=== PATIENT | male | born 1945 | race Caucasian/White ===

== ENCOUNTER 2017-06-01 11:22 | Observation (INO) | payer MEDICARE, OTHER ==
[~2017-06-01] VITALS: Ht 177.8 cm; Wt 75.0 kg
[~2017-06-01 11:22] MED LIST: ASPI81 PO; ATOR40TA PO; BENA25MI PO; CARV6.252 PO; CLOP75 PO; NU-I150C PO; OXYC1SOL5 PO; SACU1TAB7 PO; SUPETAB30 PO; WALKER ROLLING
[2017-06-01 11:29] VITALS: BP 115/74; PULSE 62; RESP 20; TEMP 97.6; O2SAT 96
--- NOTE | 2017-06-01 11:49 | PD ---
Physical Exam Time Seen by Provider: 11:47 Narrative 71yo c/o left sided chest pain, SOB, dizziness and weakness x2 weeks. Patient seen in triage. VS reviewed. Awaiting bed placement. Data Data Last Documented VS Vital Signs Date Time Temp Pulse Resp B/P Pulse Ox O2 Delivery O2 Flow Rate FiO2 06/01/17 11:29 97.6 62 20 115/74 96 Room Air [facility] Supervised Visit with STEPHEN: Mikala Clark Jun 01, 2017 11:49
[2017-06-01 12:07] VITALS: BP 106/67; PULSE 58; RESP 18; TEMP 98.5; O2SAT 98
[2017-06-01] MEDS ORDERED: CARV20 PO (12:13)
[2017-06-01] MEDS ORDERED: ATOR40TA16 PO (12:13)
[2017-06-01] MEDS ORDERED: SACU1TAB4 PO (12:13)
[2017-06-01] MEDS ORDERED: ASPI81CH37 CHEW (12:13)
--- NOTE | 2017-06-01 12:27 | PD ---
HPI Chief Complaint: Chest Pain Time Seen by Provider: 12:09 Travel History International Travel<30 days: No Contact w/Intl Traveler<30days: No Traveled to known affect area: No History of Present Illness HPI 71-year-old male complains of chest pain, dizziness, generalized malaise and weakness. Patient states that the symptoms has been intermittent for the past 2 weeks. Patient states the chest pain usually lasted a few minutes and resolved completely. Patient states that the chest pain so she with exertion. Patient denies any coughing congestion fever chills. Patient denies any nausea vomiting diaphoresis. Patient has history of CAD, status post CO, status post CABG 3. Patient also has history hypertension, hyperlipidemia. Patient denies history diabetes. Patient chews tobacco. Patient has family history of heart disease. Patient denies any chest pain now. PFSH Past Medical History Hx Anticoagulant Therapy: Yes Cardiac Catheterization: Yes Cardiovascular Problems: Yes High Cholesterol: Yes Diminished Hearing: No Hypertension: Yes Myocardial Infarction: Yes (1999) Past Surgical History Appendectomy: Yes Coronary Artery Bypass Graft: Yes (2 weeks ago) Social History Alcohol Use: No Tobacco Use: No (CHEW daily) Substance Use: No Allergies-Medications (Allergen,Severity, Reaction): Coded Allergies: No Known Allergies (Verified , 04/13/16) Reported Meds & Prescriptions Reported Meds & Active Scripts Active Reported Atorvastatin (Atorvastatin Calcium) 40 Mg Tab 40 Mg PO HS Aspirin Low Dose (Aspirin) 81 Mg Chew 81 Mg CHEW DAILY Entresto (Sacubitril-Valsartan) 97-103 Mg Tab 1 Tab PO BID Coreg Cr 24 HR (Carvedilol) 20 Mg Cap 25 Mg PO BID Review of Systems General / Constitutional: No: Fever Eyes: No: Visual changes HENT: Positive: Lightheadedness, No: Headaches Cardiovascular: Positive: Chest Pain or Discomfort Respiratory: No: Shortness of Breath Gastrointestinal: No: Abdominal Pain Genitourinary: No: Dysuria Musculoskeletal: No: Pain Skin: No Rash Neurologic: No: Weakness Psychiatric: No: Depression Endocrine: No: Polydipsia Hematologic/Lymphatic: No: Easy Bruising Physical Exam Narrative GENERAL: Well-nourished, well-developed patient. SKIN: Focused skin assessment warm/dry. HEAD: Normocephalic. EYES: No scleral icterus. No injection or drainage. NECK: Supple, trachea midline. No JVD or lymphadenopathy. CARDIOVASCULAR: Regular rate and rhythm without murmurs, gallops, or rubs. RESPIRATORY: Breath sounds equal bilaterally. No accessory muscle use. GASTROINTESTINAL: Abdomen soft, non-tender, nondistended. MUSCULOSKELETAL: No cyanosis, or edema. BACK: Nontender without obvious deformity. No CVA tenderness. Neurologic exam normal. Data Data Last Documented VS Vital Signs Date Time Temp Pulse Resp B/P Pulse Ox O2 Delivery O2 Flow Rate FiO2 06/01/17 12:56 18 99 Room Air 06/01/17 12:07 98.5 58 106/67 Orders Electrocardiogram (06/01/17 12:22) Complete Blood Count With Diff (06/01/17 12:22) Comprehensive Metabolic Panel (06/01/17 12:) Creatine Kinase (Cpk) (06/01/17 12:22) Troponin I (06/01/17 12:22) B-Type Natriuretic Peptide (06/01/17 12:22) Prothrombin Time / Inr (Pt) (06/01/17 12:22) Act Partial Throm Time (Ptt) (06/01/17 12:22) Chest, Single Ap (06/01/17 12:22) Iv Access Insert/Monitor (06/01/17 12:22) Ecg Monitoring (06/01/17 12:22) Oximetry (06/01/17 12:22) Labs Laboratory Tests Test 06/01/17 12:25 White Blood Count 5.0 TH/MM3 Red Blood Count 5.51 MIL/MM3 Hemoglobin 14.3 GM/DL Hematocrit 45.0 % Mean Corpuscular Volume 81.7 FL Mean Corpuscular Hemoglobin 26.0 PG Mean Corpuscular Hemoglobin 31.9 % Concent Red Cell Distribution Width 14.2 % Platelet Count 191 TH/MM3 Mean Platelet Volume 8.1 FL Neutrophils (%) (Auto) 49.7 % Lymphocytes (%) (Auto) 30.3 % Monocytes (%) (Auto) 16.4 % Eosinophils (%) (Auto) 2.8 % Basophils (%) (Auto) 0.8 % Neutrophils # (Auto) 2.5 TH/MM3 Lymphocytes # (Auto) 1.5 TH/MM3 Monocytes # (Auto) 0.8 TH/MM3 Eosinophils # (Auto) 0.1 TH/MM3 Basophils # (Auto) 0.0 TH/MM3 CBC Comment DIFF FINAL Differential Comment Prothrombin Time 11.3 SEC Prothromb Time International 1.0 RATIO Ratio Activated Partial 27.9 SEC Thromboplast Time Sodium Level 139 MEQ/L Potassium Level 3.9 MEQ/L Chloride Level 104 MEQ/L Carbon Dioxide Level 31.8 MEQ/L Anion Gap 3 MEQ/L Blood Urea Nitrogen 15 MG/DL Creatinine 0.97 MG/DL Estimat Glomerular Filtration 76 ML/MIN Rate Random Glucose 82 MG/DL Calcium Level 8.4 MG/DL Total Bilirubin 0.6 MG/DL Aspartate Amino Transf 17 U/L (AST/SGOT) Alanine Aminotransferase 20 U/L (ALT/SGPT) Alkaline Phosphatase 85 U/L Total Creatine Kinase 90 U/L Troponin I LESS THAN 0.02 NG/ML B-Type Natriuretic Peptide 120 PG/ML Total Protein 6.2 GM/DL Albumin 3.2 GM/DL [facility] Medical Decision Making Medical Screen Exam Complete: Yes Emergency Medical Condition: Yes Interpretation(s) 12:27 PM. EKG shows sinus rhythm nonspecific ST-T wave change. Last Impressions Chest X-Ray 06/01/17 1222 Signed Impressions: Service Date/Time: Thursday, June 01, 2017 12:22 - CONCLUSION: Minimal platelike atelectasis in the left costophrenic angle. Otherwise, no acute intrathoracic disease. Dre Jack MD 1335 PM. CBC within normal limit. CMP within normal limit. Cardiac enzymes are normal. Differential Diagnosis Differential diagnosis including angina, CO, PE, pneumothorax, electrolyte abnormality. Narrative Course 71-year-old male with intermittent chest pain dizziness and generalized malaise and weakness. History of CAD. Diagnosis Primary Impression: Chest pain Qualified Code: R07.9 - Chest pain, unspecified type Admitting Information Admitting Physician Requests: Observation Job Corona MD Jun 01, 2017 12:27
[2017-06-01 12:46] LABS: AUTOMATED NEUTROPHIL # 2.5 TH/MM3 (1.8-7.7); BASOPHIL % 0.8 % (0.0-2.0); EOSINOPHIL # 0.1 TH/MM3 (0-0.4); EOSINOPHIL % 2.8 % (0.0-4.0); HEMO FLAGS DIFF FINAL; LYMPH % 30.3 % (9.0-44.0); LYMPHOCYTE # 1.5 TH/MM3 (1.0-4.8); MEAN CELL VOLUME 81.7 FL (80.0-100.0); MEAN CORPUSCULAR HGB CONC 31.9 % (32.0-36.0); MONO % 16.4 % (0.0-8.0); NEUT % 49.7 % (16.0-70.0); PLATELET COUNT 191 TH/MM3 (150-450); RED BLOOD COUNT 5.51 MIL/MM3 (4.50-5.90); RED CELL DISTRIBUTION WIDTH 14.2 % (11.6-17.2)
[2017-06-01 12:51] LABS: APTT (PATIENT) 27.9 SEC (24.3-30.1); PROTHROMBIN TIME - PATIENT 11.3 SEC (9.8-11.6)
[2017-06-01 12:56] VITALS: RESP 18; O2SAT 99
--- NOTE | 2017-06-01 12:58 | RADRPT ---
EXAM DATE/TIME: 06/01/2017 12:22 [facility] COMPARISON: CHEST SINGLE AP, February 15, 2016, 3:19. INDICATIONS : Left side chest pressure and chest pains, dizziness, weakness. MEDICAL HISTORY : Myocardial infarction. SURGICAL HISTORY : CABG. ENCOUNTER: Initial ACUITY: 3 days PAIN SCORE: 8/10 LOCATION: Left chest FINDINGS: A single view of the chest demonstrates the lungs to be symmetrically aerated without evidence of mas s, infiltrate or effusion. Minimal platelike atelectasis in the left costophrenic angle. The lungs ar e hyperaerated bilaterally. The cardiomediastinal contours are unremarkable. There is evidence of pr evious cardiothoracic surgery. Osseous structures are intact and stable. CONCLUSION: Minimal platelike atelectasis in the left costophrenic angle. Otherwise, no acute intrathoracic disea se. Dre Jack MD on June 01, 2017 at 12:55 Board Certified Radiologist. This report was verified electronically.
[2017-06-01 13:05] LABS: ALT (GPT) 20 U/L (12-78); ANION GAP 3 MEQ/L (5-15); AST (GOT) 17 U/L (15-37); BICARBONATE 31.8 MEQ/L (21.0-32.0); BLOOD UREA NITROGEN 15 MG/DL (7-18); CHLORIDE 104 MEQ/L (98-107); GLOMERULAR FILTRATION RATE 76 ML/MIN (>89); POTASSIUM 3.9 MEQ/L (3.5-5.1); SODIUM (NA) 139 MEQ/L (136-145)
[2017-06-01 13:08] LABS: ALKALINE PHOSPHATASE 85 U/L (45-117); TOTAL BILIRUBIN ADULT 0.6 MG/DL (0.2-1.0)
[2017-06-01 13:12] LABS: CREATINE KINASE 90 U/L (39-308)
[2017-06-01] MEDS ORDERED: ACETAMINOPHEN 500 MG CPLT PO PRN (13:45)
[2017-06-01] MEDS ORDERED: SODIUM CHLORIDE 0.9% FLUSH 10 ML FLUSH IV FLUSH PRN (13:45)
[2017-06-01] MEDS ORDERED: ONDANSETRON HCL 4 MG/2 ML VIAL IV PRN (13:45)
--- NOTE | 2017-06-01 15:38 | HHI.HP ---
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 He became hot, dry and exhausted. He felt very weak and light headed but did not stop sweating. This necessitated a rest and cooling off period with rehydration. He had no chest pain. Since that time he has had 3 or 4 recurrent episodes of light headedness and weakness precipitated by over exertion. He also has had several mild episodes of CP but this is nothing like the discomfort he had prior to having CABG. This pain is dull, in the left lateral chest, with no radiation lasting only about 30 seconds. He had an CO in 1999 and underwent CABG by Dr. Cooper in 2015. Since that time he has had no problems at all. Risk include HTN, Lipids He is followed by Dr. Craig (Santana Vargas MD) Review of Systems Consitutional: COMPLAINS OF: Fatigue HEENT: COMPLAINS OF: Lightheadedness Cardiovascular: COMPLAINS OF: See HPI, Chest pain (Santana Vargas MD) Past Family Social History Allergies: Coded Allergies: No Known Allergies (Verified , 04/13/16) Past Medical History HTN LIPIDS Past Surgical History CABG X3 IN 2014 BY FORREST Reported Medications Reported Meds & Active Scripts Active Reported Atorvastatin (Atorvastatin Calcium) 40 Mg Tab 40 Mg PO HS Aspirin Low Dose (Aspirin) 81 Mg Chew 81 Mg CHEW DAILY Entresto (Sacubitril-Valsartan) 97-103 Mg Tab 1 Tab PO BID Coreg Cr 24 HR (Carvedilol) 20 Mg Cap 25 Mg PO BID Active Ordered Medications Current Medications Medications (Trade) Dose Ordered Sig/Cee Route Start Time Stop Time Status Last Admin (NS Flush) 2 ml UNSCH PRN IV FLUSH 06/01/17 13:45 (NS Flush) 2 ml BID IV FLUSH 06/01/17 21:00 (Tylenol) 500 mg Q4H PRN PO 06/01/17 13:45 (Zofran Inj) 4 mg Q6H PRN IV 06/01/17 13:45 Family History FATHER MURDERED MOTHER IN HER 60ies of COPD Social History STILL CHEWS TOBACCO NO ETOH OR DRUGS (Santana Vargas MD) Physical Exam Vital Signs Vital Signs Date Time Temp Pulse Resp B/P Pulse Ox O2 Delivery O2 Flow Rate FiO2 06/01/17 12:56 18 99 Room Air 06/01/17 12:07 98.5 58 18 106/67 98 Room Air 06/01/17 12:07 58 18 96 Room Air 06/01/17 11:29 97.6 62 20 115/74 96 Room Air Physical Exam GEN WNWD SKN SOLAR DAMAGE HEENT BALDING, NCAT, NO BRUITS, POOR DENTITION WITH NO LESIONS NECK SUPPLE NO JVD OR BRUITS CHEST CLEAR TO AP WITH NO RWR ABD SOFT NT, NGR EXT WITHOUT CCE NEURO GOOD STRENGTH, CRANIAL INTACT, NO TREMOR Laboratory Laboratory Tests Test 06/01/17 12:25 White Blood Count 5.0 Red Blood Count 5.51 Hemoglobin 14.3 Hematocrit 45.0 Mean Corpuscular Volume 81.7 Mean Corpuscular Hemoglobin 26.0 Mean Corpuscular Hemoglobin 31.9 Concent Red Cell Distribution Width 14.2 Platelet Count 191 Mean Platelet Volume 8.1 Neutrophils (%) (Auto) 49.7 Lymphocytes (%) (Auto) 30.3 Monocytes (%) (Auto) 16.4 Eosinophils (%) (Auto) 2.8 Basophils (%) (Auto) 0.8 Neutrophils # (Auto) 2.5 Lymphocytes # (Auto) 1.5 Monocytes # (Auto) 0.8 Eosinophils # (Auto) 0.1 Basophils # (Auto) 0.0 CBC Comment DIFF FINAL Differential Comment Prothrombin Time 11.3 Prothromb Time International 1.0 Ratio Activated Partial 27.9 Thromboplast Time Sodium Level 139 Potassium Level 3.9 Chloride Level 104 Carbon Dioxide Level 31.8 Anion Gap 3 Blood Urea Nitrogen 15 Creatinine 0.97 Estimat Glomerular Filtration 76 Rate Random Glucose 82 Calcium Level 8.4 Total Bilirubin 0.6 Aspartate Amino Transf 17 (AST/SGOT) Alanine Aminotransferase 20 (ALT/SGPT) Alkaline Phosphatase 85 Total Creatine Kinase 90 Troponin I LESS THAN 0.02 B-Type Natriuretic Peptide 120 Total Protein 6.2 Albumin 3.2 (Santana Vargas MD) Result Diagram: 06/01/17 1225 06/01/17 1225 Assessment and Plan Assessment and Plan A: WEAK AND LIGHT HEADED PROBABLY SECONDARY TO HEAT EXHAUSTION 2 WEEKS AGO BUT WILL RO POSSIBLE CARDIAC ETIOLOGY CP KNOWN CAD SP CABG CP ATYPICAL AND NOT LIKE PRIOR ANGINA P: RO PER PROTOCOL ETT WHEN RO DISCH TO FU WITH DR CRAIG IF NEG (Santana Vargas MD) Assessment and Plan Luis protocol stress test completed. Walks 10; 01 minutes no reproducible chest pain. No signs of ischemia. Will discharged this evening with follow-up with his PCP. (Brittany Hernandez) Santana Vargas MD Jun 01, 2017 15:38 Brittany Hernandez Jun 01, 2017 17:11
[2017-06-01 17:14] VITALS: BP 106/74; PULSE 67; RESP 18; TEMP 97.5; O2SAT 95
--- NOTE | 2017-06-01 17:20 | HHI.DCPOC ---
Discharge Care Plan Diagnosis: (1) Atypical chest pain (2) Hx of coronary artery disease Goals to Promote Your Health * To prevent worsening of your condition and complications * To maintain your health at the optimal level Directions to Meet Your Goals Take your medications as prescribed Follow your dietary instruction Follow activity as directed Keep your appointments as scheduled Take your immunizations and boosters as scheduled If your symptoms worsen call your PCP, if no PCP go to Urgent Care Center or Emergency Room Smoking is Dangerous to Your Health. Avoid second hand smoke Call the 24-hour hour crisis hotline for domestic abuse at Brittany Hernandez Jun 01, 2017 17:20
[2017-06-01] MEDS ORDERED: SODIUM CHLORIDE 0.9% FLUSH 10 ML FLUSH IV FLUSH SCH (21:00)
--- NOTE | 2017-06-02 09:40 | TR ---
Date Performed: 06/01/2017 Time Performed: 16:34:51 DOCTOR: Santana Vargas DRUG LIST: CLINICAL HISTORY: REASON FOR TEST: Chest pain REASON FOR ENDING: OBSERVATION: CONCLUSION: Luis protocol completed. Stopped sec to leg fatigue. Target HR Achieved=84.0% Maxim um EZ=946/94 Total Exercise Time=10:01 Maximum GB=294. No reprod chest pain. ST elevation in V3 and V 4 prior to exam, unchanged during exam. No st depression to sugg ischemia. Rare PVC during recovery. Normal bp response. Good exercise tolerance. Recovery quick and unremarkable. COMMENTS: /ETTPatient exercised using the Luis protocol. No electrocardiographic changes were s een to suggest ischemia. Hemodynamic response to exercise was normal. No significant arrhythmia was p resent.
--- NOTE | 2017-06-02 16:38 | EKG ---
Date Performed: 06/01/2017 Time Performed: 15:56:52 PTAGE: 71 years EKG: SINUS BRADYCARDIA WITH FIRST DEGREE AV BLOCK LATERAL MYOCARDIAL INFARCTION INFERIOR MYOCARD IAL INFARCTION ABNORMAL ECG PREVIOUS TRACING : 06/01/2017 11.59 Compared to the previous tracing, change in anterior QRS pa ttern may be due to lead placement DOCTOR: Petar Retana Interpretating Date/Time 06/02/2017 16:37:36
--- NOTE | 2017-06-02 16:58 | EKG ---
Date Performed: 06/01/2017 Time Performed: 11:59:38 PTAGE: 71 years EKG: SINUS BRADYCARDIA WITH FIRST DEGREE AV BLOCK LATERAL MYOCARDIAL INFARCTION INFERIOR MYOCARD IAL INFARCTION ABNORMAL ECG PREVIOUS TRACING : 02/15/2016 03.45 Compared to the previous tracing, previous inferior ST elev ations no longer noted, lateral Q waves are new DOCTOR: Petar Retana Interpretating Date/Time 06/02/2017 16:57:08
== END 2017-06-01 18:03 | disposition home or self-care (01) ==
LOC: NEPC 11:22 → NEDA 13:44 → NEPFCDU 14:37
PROVIDERS: ADMIT Internal Medicine Interventional Cardiology; ATTEND Internal Medicine Interventional Cardiology
DX: R53.1 Weakness (principal); R42 Dizziness and giddiness; R07.9 Chest pain, unspecified; I44.0 Atrioventricular block, first degree; R00.1 Bradycardia, unspecified; R94.31 Abnormal electrocardiogram [ECG] [EKG]; R53.83 Other fatigue; I25.10 Atherosclerotic heart disease of native coronary artery without angina pectoris; I25.2 Old myocardial infarction; I10 Essential (primary) hypertension; E78.5 Hyperlipidemia, unspecified; E78.00 Pure hypercholesterolemia, unspecified; F17.220 Nicotine dependence, chewing tobacco, uncomplicated; Z95.1 Presence of aortocoronary bypass graft; Z79.899 Other long term (current) drug therapy; Z79.82 Long term (current) use of aspirin; Z82.49 Family history of ischemic heart disease and other diseases of the circulatory system
CPT/HCPCS: 71010; 80053; 82550; 83880; 84484; 85025; 85610; 85730; 93005; 93017; 99285; G0378

== ENCOUNTER 2018-11-09 16:48 | Inpatient (IN) ==
--- NOTE | 2018-11-09 17:26 | ED ---
HPI General Chief complaint: Respiratory Symptoms Stated complaint: respiratory Time Seen by Provider: 11/09/18 16:59 Source: patient and RN notes reviewed Mode of arrival: ambulatory Limitations: no limitations History of Present Illness HPI narrative: 72 year old male presents to the emergency department for evaluation for SOB, possible syncopal episode that occurred last night. Patient states he fell asleep on the couch watching TV. He states that he woke up at some point during the night and was diaphoretic with SOB. He states he sat up at the edge of the couch and then a few minutes later woke up on the floor, unsure if he had a syncopal episode. Patient reports history of cardiac bypass, AR. He is currently only on an ASA daily. He denies any chest pain at any point. He states SOB is now resolved. No abdominal pain, nausea, vomiting , diarrhea. No headache or fevers. No new cough or congestion. Onset (ago): hour(s) Radiation: non-radiation Severity: moderate Relieving factors: none Exacerbating factors: none Associated symptoms: Reports denies other symptoms, shortness of breath and syncope; Denies confusion, chest pain, cough, diaphoresis, fever/chills, headaches, loss of appetite, malaise, nausea/vomiting, rash, seizure and weakness Related Data Home Medications Medication Instructions Recorded Confirmed No Known Home Medications 11/09/18 11/09/18 Allergies Allergy/AdvReac Type Severity Reaction Status Date / Time No Known Allergies Allergy Verified 11/09/18 16:57 Review of Systems ROS: all other systems reviewed are negative [facility] Medical History Medical History Hypertension (Acute) Past heart attack (Acute) Surgical History Surgical History Hx of CABG (Acute) Social History Social History Substance History: No History of Abuse Smoking Status: Current every day smoker Tobacco Type: Smokeless Tobacco How Often Do You Have a Drink Containing Alcohol: Monthly or less Recent Travel in [facility] within the Last 8 Weeks: No Recent Out of Country Travel within the Last 8 Weeks: No Immunization History Tetanus Immunization: <5 Years Exam Narrative Exam Narrative: GENERAL: Well-nourished, well-developed male patient, afebrile SKIN: Focused skin assessment warm/dry. HEAD: Normocephalic. Atraumatic EYES: No scleral icterus. No injection or drainage. NECK: Supple, trachea midline. No JVD or lymphadenopathy. CARDIOVASCULAR: Regular rate and rhythm without murmurs, gallops, or rubs. Bilateral radial and pedal pulses 2+ RESPIRATORY: Breath sounds equal bilaterally. No accessory muscle use. Lung sounds are clear to auscultation GASTROINTESTINAL: Abdomen soft, non-tender, nondistended. MUSCULOSKELETAL: No cyanosis, or edema. BACK: Nontender without obvious deformity. No CVA tenderness. Course Initial Documented Vital Signs Temperature 97.7 F 11/09/18 16:51 Pulse Rate 73 11/09/18 16:51 Respiratory Rate 20 11/09/18 16:51 Blood Pressure 168/98 H 11/09/18 16:51 Pulse Oximetry 98 11/09/18 16:51 Last Documented Vital Signs Temperature 97.7 F 11/09/18 16:51 Pulse Rate 73 11/09/18 16:51 Respiratory Rate 20 11/09/18 16:51 Blood Pressure 168/98 H 11/09/18 16:51 Pulse Oximetry 98 11/09/18 17:27 Medical Decision Making STEPHEN Attestation STEPHEN supervised visit: Yes Attestation: The history, exam, and medical decision-making in the associated midlevel provider note were completed with my assistance. I reviewed and agree with the findings presented. I attest that I had a [id number] encounter with the patient on the same day, and personally performed and documented my assessment and findings in the medical record. *My assessment and Findings: This is a 72-year-old male who has a history of heart disease who presents to the emergency department having had an episode overnight where he became very sweaty and ultimately found himself passed out on the ground. Currently he feels better. He has frequent PVCs on EKG. Labs are notable for a troponin of 0.09. His episode could reflect a life- threatening arrhythmia or ischemic event. Patient will be admitted for further evaluation of syncope. [facility] Narrative Medical decision making narrative: 72-year-old male presents to the emergency department for evaluation of an episode of shortness of breath, diaphoretic, possible syncope that occurred last night. EKG, CBC, CMP, magnesium, CK, troponin, PTT, PT/INR, chest x-ray, CT of the brain ordered and pending. CBC shows no acute abnormality. CMP shows no acute abnormality. Magnesium is 2.0. CK is 104. Troponin is 0.09. PTT is 28.1. PT/INR is 10.8/1.1. Chest x- ray shows no acute cardiopulmonary disease. CT of the brain is unremarkable. Patient states he took 2 aspirin today. He will be admitted for further evaluation of syncope, elevated troponin. He verbalizes agreement to this. Medical Screen Exam Complete: Yes Emergency Medical Condition: Yes Differential Diagnosis Differential Diagnosis: ACS versus metabolic abnormality versus arrhythmia versus intracranial abnormality versus URI Medical Records Medical records reviewed: Yes I reviewed the patient's medical records. Lab Data Result diagrams: 11/09/18 17:20 11/09/18 17:20 Lab Results 11/09/18 11/09/18 11/09/18 Range/Units 17:20 17:20 17:20 WBC 6.2 (4.0-11.0) th/mm3 RBC 5.38 (4.50-5.90) mil/mm3 Hgb 15.0 (13.0-17.0) gm/dL Hct 44.0 (39.0-51.0) % MCV 81.8 (80.0-100.0) fL MCH 27.8 (27.0-34.0) pg MCHC 34.0 (32.0-36.0) % RDW 14.2 (11.6-17.2) % Plt Count 171 (150-450) th/mm3 MPV 8.6 (7.0-11.0) fL Neut % (Auto) 58.6 (16.0-70.0) % Lymph % (Auto) 25.5 (9.0-44.0) % Harvey % (Auto) 12.4 H (0.0-8.0) % Eos % (Auto) 2.6 (0.0-4.0) % Baso % (Auto) 0.9 (0.0-2.0) % Neut # (Auto) 3.6 (1.8-7.7) th/mm3 Lymph # (Auto) 1.6 (1.0-4.8) th/mm3 Harvey # (Auto) 0.8 (0.0-0.9) th/mm3 Eos # (Auto) 0.2 (0.0-0.4) th/mm3 Baso # (Auto) 0.1 (0.0-0.2) th/mm3 WBC Differential . Differential Comment Auto diff final PT 10.8 (9.8-11.6) sec INR 1.1 Ratio APTT 28.1 (23.4-31.7) sec Sodium 140 (136-145) meq/L Potassium 3.3 L (3.5-5.1) meq/L Chloride 106 (98-107) meq/L Carbon Dioxide 27.8 (21.0-32.0) meq/L Anion Gap 6 (5-15) meq/L BUN 14 (7-18) mg/dL Creatinine 0.85 (0.60-1.30) mg/dL Estimated GFR 88 L (>89) mL/min Random Glucose 126 H (74-106) mg/dL Calcium 8.3 L (8.5-10.1) mg/dL Magnesium 2.0 (1.5-2.5) mg/dL Total Bilirubin 1.1 H (0.2-1.0) mg/dL AST 26 (15-37) U/L ALT 25 (12-78) U/L Alkaline Phosphatase 80 (45-117) U/L Total Creatine Kinase 104 (39-308) U/L CK-MB (CK-2) 2.9 (0.5-3.6) ng/mL Troponin I 0.09 H (0.02-0.05) ng/mL Total Protein 6.7 (6.4-8.2) g/dL Albumin 3.5 (3.4-5.0) g/dL Imaging Data Radiologist's impression: Chest X-Ray 11/09/18 17:18 CONCLUSION: No acute cardiopulmonary disease. Head CT 11/09/18 17:26 CONCLUSION: Unremarkable study. . Discharge Plan Discharge Disposition Patient Disposition: ED Admit(ED Internal Use Only) Discharge Order Discharge Orders: ED Use Only Admit Order (Routine); Ordered 11/09/18 Ordered By: Betsy Venegas Discharge Details Diagnosis: Syncope, Elevated troponin Physicians Team ED Provider: Narcisa Duff ED Midlevel Provider: Betsy Venegas Primary Care Provider: Primary Care Lexisi,Maria Guadalupe Attending Provider: Quirino Miller Status ED Status: Admitted Patient
--- NOTE | 2018-11-09 17:40 | XR ---
EXAM DATE: 11/09/2018 5:32 PM EST AGE/SEX: 72 years / Male INDICATIONS: Shortness of breath. CLINICAL DATA: This is the patient's initial encounter. Patient reports that signs and symptoms have been present for 2 days and indicates a pain score of 0/10. MEDICAL/SURGICAL HISTORY: Myocardial infarction. CABG. COMPARISON: [facility] [place], CHEST SINGLE AP, 06/01/2017. . FINDINGS: The lungs are clear without infiltrate, nodule, or mass except for slight scarring and/or atelectasis left lung base above the hemidiaphragm. There is no appreciable pleural effusion for technique. He art and mediastinum are unremarkable. There is evidence for prior median sternotomy. CONCLUSION: No acute cardiopulmonary disease. Electronically signed by: Ernestina Gagnon MD Board Certified Radiologist 11/09/2018 5:38 PM EST
[2018-11-09 17:45] LABS: Baso # (Auto) 0.1 th/mm3 (0.0-0.2); Baso % (Auto) 0.9 % (0.0-2.0); Eos # (Auto) 0.2 th/mm3 (0.0-0.4); Eos % (Auto) 2.6 % (0.0-4.0); Lymph # (Auto) 1.6 th/mm3 (1.0-4.8); Lymph % (Auto) 25.5 % (9.0-44.0); Mean Corpuscular Hemoglobin 27.8 pg (27.0-34.0); Mean Corpuscular Volume 81.8 fL (80.0-100.0); Mean Platelet Volume 8.6 fL (7.0-11.0); Mono # (Auto) 0.8 th/mm3 (0.0-0.9); Mono % (Auto) 12.4 % (0.0-8.0); Neut # (Auto) 3.6 th/mm3 (1.8-7.7); Neut % (Auto) 58.6 % (16.0-70.0); Platelet Count 171 th/mm3 (150-450); Red Blood Count 5.38 mil/mm3 (4.50-5.90); Red Cell Distribution Width 14.2 % (11.6-17.2); White Blood Count 6.2 th/mm3 (4.0-11.0)
[2018-11-09 17:55] LABS: Activated Partial Thrombo Time 28.1 sec (23.4-31.7); INR 1.1 Ratio; Prothrombin Time 10.8 sec (9.8-11.6)
--- NOTE | 2018-11-09 17:59 | CT ---
EXAM DATE: 11/09/2018 5:47 PM EST AGE/SEX: 72 years / Male INDICATIONS: Syncope, one day. CLINICAL DATA: This is the patient's initial encounter. Patient reports that signs and symptoms have been present for 1 day and indicates a pain score of 1/10. MEDICAL/SURGICAL HISTORY: Hypertension. Myocardial infarction. CABG. RADIATION DOSE: 38.90 CTDI (mGy) COMPARISON: No prior exams available for comparison. TECHNIQUE: CT of the head without contrast. Using automated exposure control and adjustment of the mA and/or kV according to patient size, radiation dose was kept as low as reasonably achievable to ob tain optimal diagnostic quality images. DICOM format image data is available electronically for revi ew and comparison. FINDINGS: There is no evidence for intracranial hemorrhage, mass effect, mass lesions, edema, or extra-axial fl uid collections. The visualized bony structures appear intact. The ventricles are normal size for t he patient's age. There are no signs of acute infarction for technique. CONCLUSION: Unremarkable study. . Electronically signed by: Ernestina Gagnon MD Board Certified Radiologist 11/09/2018 5:57 PM EST
[2018-11-09 18:06] LABS: Alanine Aminotransferase 25 U/L (12-78); Albumin 3.5 g/dL (3.4-5.0); Anion Gap 6 meq/L (5-15); Aspartate Aminotransferase 26 U/L (15-37); Blood Urea Nitrogen 14 mg/dL (7-18); Calcium 8.3 mg/dL (8.5-10.1); Carbon Dioxide 27.8 meq/L (21.0-32.0); Chloride 106 meq/L (98-107); Glomerular Filtration Rate 88 mL/min (>89); Glucose,Random 126 mg/dL (74-106); Potassium 3.3 meq/L (3.5-5.1); Sodium 140 meq/L (136-145)
[2018-11-09 18:11] LABS: Alkaline Phosphatase 80 U/L (45-117); Creatine Kinase 104 U/L (39-308); Total Protein 6.7 g/dL (6.4-8.2); Troponin I 0.09 ng/mL (0.02-0.05)
[2018-11-09 18:23] LABS: Creatine Kinase MB 2.9 ng/mL (0.5-3.6)
[2018-11-09] MEDS ORDERED: Docusate Sodium 100 MG Capsule PO PRN (18:48)
[2018-11-09] MEDS ORDERED: Heparin Drip 25,000 UNIT/250 ML BAG IV.CONT PRN (19:07)
[2018-11-09] MEDS ORDERED: Heparin 10,000 UNITS/10 ML Vial (for IV use) IV.PUSH STA (19:07)
[2018-11-09] MEDS: Sod Chloride 0.9% Inj 1,000 ML IV.CONT SCH (19:45)
--- NOTE | 2018-11-09 20:05 | P.HPIM ---
History of Present Illness Primary Care Physician: No Primary Care Physician History of Present Illness: This is a 72-year-old male with PMH of HTN and CAD who presents to the ER with complaints of syncopal event last night. States he was "watching the ball game " on the couch when he had sudden onset of SOB, followed by syncopal event which he believes lasted approx 15min, states he woke up on the floor and the game was still on. No h/o similar symptoms, no incontinence. Today w/ mild dizziness at which time he presented to the ER. On arrival, BP 168/98, HR 73, O2 sat 98% on RA, Afebrile. CBC unremarkable. INR 1.1 per GFR 88. Troponin 0 0.09. CXR with no acute findings for CT Head negative. Remains chest pain free. - Diagnosis (1) ACS (acute coronary syndrome) (2) Dehydration (3) Syncope Inpatient Certification: I certify that the inpatient services were ordered in accordance with Medicare regulations governing the order. This includes certification that hospital inpatient services are reasonable and necessary and in the case of services not specified as inpatient-only under 42 CFR 419.22(n), that they are appropriately provided as inpatient services in accordance to with the 2-midnight benchmark under 43 CFR 412.3(e) Estimated Total Length of Stay (Days): 3 Plans for Post Hospital Care: SNF Review of Systems PAST FAMILY HISTORY: Reviewed. No h/o DM or CAD All other systems reviewed negative except as stated in HPI PMFSH - History History Provided By: Patient, Family Member - Medical History Medical History: Medical History (Last Updated 11/09/18 @ 16:57 by Melita Betancourt) Hypertension Past heart attack - Surgical History Surgical History: Surgical History (Last Updated 11/09/18 @ 16:57 by Melita Betancourt) Hx of CABG - Tobacco History Tobacco Use In Past 30 Days: Yes Smoking Status: Current every day smoker Tobacco Type: Smokeless Tobacco - Alcohol History How Often Do You Have a Drink Containing Alcohol: Monthly or less - Substance Use History Substance History: No History of Abuse - Travel History Recent Travel in the [place] Within the Last 8 Weeks: No Recent Travel Out of the Country Within the Last 8 Weeks: No - Immunization History Tetanus Immunization: <5 Years Medications and Allergies Active Medications: Active Medications Acetaminophen (Tylenol) 650 mg PO Q4H PRN PRN Reason: Temp > 100.4 Aspirin (Ecotrin) 325 mg PO DAILY MICH Docusate Sodium (Colace) 100 mg PO BID PRN PRN Reason: CONSTIPATION Heparin Sodium/Dextrose (Heparin/D5w 25,000 U/250 Ml) 25,000 unit in 250 mls @ 9 mls/hr IV.CONT TITRATE PRN; Protocol PRN Reason: Per Protocol Last Admin: 11/09/18 19:44 Dose: 900 units/hr, 9 mls/hr Sodium Chloride (Ns Inj) 1,000 mls @ 100 mls/hr IV.CONT .Q10H MICH Last Admin: 11/09/18 19:45 Dose: 100 mls/hr Metoprolol Tartrate (Lopressor) 25 mg PO BID [facility], [facility]1983 Nitroglycerin (Nitro-Bid 2% Oint) 1 inch TOPICAL Q6HR FOR[facility], 1928–1983 Ondansetron HCl (Zofran Inj) 4 mg IV.PUSH Q6H PRN PRN Reason: NAUSEA OR VOMITING Pravastatin Sodium (Pravachol) 40 mg PO DAILY MICH Sodium Chloride (Ns Inj) 2 ml IV.FLUSH BID MICH Sodium Chloride (Ns Inj) 2 ml IV.FLUSH UNSCH PRN PRN Reason: FLUSH AFTER USING IV ACCESS Sodium Chloride (Ns Flush) 2 ml IV.FLUSH BID MICH Sodium Chloride (Ns Flush) 2 ml IV.FLUSH PRN PRN PRN Reason: FLUSH AFTER USING IV ACCESS Allergies Allergy/AdvReac Type Severity Reaction Status Date / Time No Known Allergies Allergy Verified 11/09/18 16:57 Home Medications Medication Instructions Recorded Confirmed Type No Known Home Medications 11/09/18 11/09/18 History Exam Vital signs: Vital Signs 11/09/18 16:51 11/09/18 17:27 11/09/18 19:06 Temperature 97.7 F Pulse Rate 73 70 Respiratory Rate 20 16 Blood Pressure 168/98 H 149/88 H Pulse Oximetry 98 98 96 Intake & Output 11/09/18 11/09/18 11/10/18 06:59 18:59 06:59 Weight 71.668 kg Narrative: PE: GENERAL: Pleasant middle-aged white male in no acute distress. SKIN: Focused skin assessment warm and dry. HEENT: PERRLA, EOMI. No scleral icterus or conjunctival pallor. No lid lag or facial droop. CARDIOVASCULAR: Regular rate and rhythm. No obvious murmurs to auscultation. No chest tenderness to palpation. RESPIRATORY: No obvious rhonchi or wheezing. Clear to auscultation. Breath sounds equal bilaterally. GASTROINTESTINAL: Abdomen soft, non-tender, nondistended. BS normal. MUSCULOSKELETAL: Extremities without clubbing, cyanosis, or edema. No obvious deformities. NEUROLOGICAL: Awake, alert and oriented x4. No focal neurologic deficits. Moving both upper and lower extremities spontaneously. PSYCHIATRIC: Appropriate mood and affect. Insight and judgment normal. Results - Labs CBC & Chem 7: 11/09/18 17:20 11/09/18 17:20 Labs: Short CBC 11/09/18 Range/Units 17:20 WBC 6.2 (4.0-11.0) th/mm3 Hgb 15.0 (13.0-17.0) gm/dL Hct 44.0 (39.0-51.0) % Plt Count 171 (150-450) th/mm3 BMP 11/09/18 17:20 Sodium 140 Potassium 3.3 L Chloride 106 Carbon Dioxide 27.8 BUN 14 Creatinine 0.85 Calcium 8.3 L Cardiac Enzymes 11/09/18 Range/Units 17:20 Total Creatine Kinase 104 (39-308) U/L CK-MB (CK-2) 2.9 (0.5-3.6) ng/mL Troponin I 0.09 H (0.02-0.05) ng/mL Liver Function 11/09/18 Range/Units 17:20 Total Bilirubin 1.1 H (0.2-1.0) mg/dL AST 26 (15-37) U/L ALT 25 (12-78) U/L Alkaline Phosphatase 80 (45-117) U/L Albumin 3.5 (3.4-5.0) g/dL - Imaging Impressions Chest X-Ray 11/09/18 17:18 CONCLUSION: No acute cardiopulmonary disease. Head CT 11/09/18 17:26 CONCLUSION: Unremarkable study. . Caprini VTE Risk Assessment Caprini VTE Risk Assessment: No/Low Risk (score <= 1) Caprini Risk Assessment Model: Point Value = 1 Point Value = 2 Point Value = 3 Point Value = 5 Age 41-60 Minor surgery BMI > 25 kg/m2 Swollen legs Varicose veins or History of unexplained or recurrent spontaneous Oral contraceptives or hormone replacement Sepsis (< 1 month) Serious lung disease, including pneumonia (< 1 month) Abnormal pulmonary function Acute myocardial infarction Congestive heart failure (< 1 month) History of inflammatory bowel disease Medical patient at bed rest Age 61-74 Arthroscopic surgery Major open surgery (> 45 min) Laparoscopic surgery (> 45 min) Malignancy Confined to bed (> 72 hours) Immobilizing plaster cast Central venous access Age >= 75 History of VTE Family history of VTE Factor V Leiden Prothrombin [id number] Lupus anticoagulant Anticardiolipin antibodies Elevated serum homocysteine Heparin-induced thrombocytopenia Other congenital or acquired thrombophilia Stroke (< 1 month) Elective arthroplasty Hip, pelvis, or leg fracture Acute spinal cord injury (< 1 month) Prophylaxis Regimen: Total Risk Factor Score Risk Level Prophylaxis Regimen 0-1 Low Early ambulation 2 Moderate Order ONE of the following: *Sequential Compression Device (SCD) *Heparin 5000 units SQ BID 3-4 Higher Order ONE of the following medications: *Heparin 5000 units SQ TID *Enoxaparin/Lovenox 40 mg SQ daily (WT < 150 kg, CrCl > 30 mL/min) *Enoxaparin/Lovenox 30 mg SQ daily (WT < 150 kg, CrCl > 10-29 mL/min) *Enoxaparin/Lovenox 30 mg SQ BID (WT < 150 kg, CrCl > 30 mL/min) AND/OR *Sequential Compression Device (SCD) 5 or more Highest Order ONE of the following medications: *Heparin 5000 units SQ TID (Preferred with Epidurals) *Enoxaparin/Lovenox 40 mg SQ daily (WT < 150 kg, CrCl > 30 mL/min) *Enoxaparin/Lovenox 30 mg SQ daily (WT < 150 kg, CrCl > 10-29 mL/min) *Enoxaparin/Lovenox 30 mg SQ BID (WT < 150 kg, CrCl > 30 mL/min) AND *Sequential Compression Device (SCD) Assessment and Plan - Assessment (1) ACS (acute coronary syndrome) Code(s): I24.9 - Acute ischemic heart disease, unspecified Status: Acute (2) Dehydration Code(s): E86.0 - Dehydration Status: Acute (3) Syncope Code(s): R55 - Syncope and collapse Status: Acute - Plan A/P: 1. Syncope: acute syncopal event last night, no h/o similar symptoms, CT Head w/ no acute findings, images reviewed. Likely vasovagal, however elevated trop and concern for ACS. Telemetry, check Echo to eval for valvular abnormality/ cardiomyopathy, check serial cardiac enzymes. 2. ACS: Trop 0.09, h/o CAD s/p CABG, symptoms concerning for ACS, will start Heparin gtt, admit to [facility], check serial cardiac enzymes, consult Cardiology, check Lipid Profile/Hgb A1c, start ASA, Statin and Metoprolol. 3. Dehydration: GFR 88, IVF for hydration, monitor I/O, repeat labs in am. 4. DVT Prophylaxis: Heparin gtt 5. Social work for d/c planning as needed 6. Case discussed w/ ER physician at length, labs/records/imaging reviewed by me. (3) Syncope Qualifiers: Syncope type: unspecified Qualified Code(s): R55 - Syncope and collapse
[2018-11-09] MEDS: Metoprolol Tartrate 25 MG Tablet PO SCH (21:24)
[2018-11-10 00:50] LABS: Chol/HDL Ratio 3.88 Ratio; HDL Cholesterol 45.1 mg/dL (40.0-60.0); Thyroid Stimulating Hormone 1.42 uIU/mL (0.358-3.740); Troponin I 0.08 ng/mL (0.02-0.05)
[2018-11-10] MEDS: Sod Chloride 0.9% Inj 1,000 ML IV.CONT SCH ×2 (05:31→19:15)
[2018-11-10 09:01] LABS: Baso # (Auto) 0.1 th/mm3 (0.0-0.2); Baso % (Auto) 1.1 % (0.0-2.0); Eos # (Auto) 0.2 th/mm3 (0.0-0.4); Eos % (Auto) 3.8 % (0.0-4.0); Hematocrit 41.1 % (39.0-51.0); Hemoglobin 13.7 gm/dL (13.0-17.0); Lymph # (Auto) 1.4 th/mm3 (1.0-4.8); Mean Corpuscular HGB Conc 33.3 % (32.0-36.0); Mean Corpuscular Hemoglobin 27.4 pg (27.0-34.0); Mean Corpuscular Volume 82.4 fL (80.0-100.0); Mean Platelet Volume 8.6 fL (7.0-11.0); Mono # (Auto) 0.6 th/mm3 (0.0-0.9); Mono % (Auto) 11.6 % (0.0-8.0); Neut # (Auto) 2.9 th/mm3 (1.8-7.7); Neut % (Auto) 56.5 % (16.0-70.0); Platelet Count 156 th/mm3 (150-450); Red Cell Distribution Width 14.5 % (11.6-17.2); White Blood Count 5.1 th/mm3 (4.0-11.0)
[2018-11-10 09:22] LABS: Anion Gap 5 meq/L (5-15); Aspartate Aminotransferase 22 U/L (15-37); Blood Urea Nitrogen 15 mg/dL (7-18); Calcium 8.2 mg/dL (8.5-10.1); Carbon Dioxide 28.6 meq/L (21.0-32.0); Chloride 106 meq/L (98-107); Glomerular Filtration Rate 80 mL/min (>89); Glucose,Random 76 mg/dL (74-106); Potassium 4.1 meq/L (3.5-5.1); Sodium 140 meq/L (136-145)
[2018-11-10 09:23] LABS: Cholesterol 182 mg/dL (120-200); Triglycerides 72 mg/dL (42-150)
[2018-11-10 09:34] LABS: Alanine Aminotransferase 25 U/L (12-78); Alkaline Phosphatase 63 U/L (45-117); Chol/HDL Ratio 4.17 Ratio; HDL Cholesterol 43.6 mg/dL (40.0-60.0); LDL Cholesterol,Calculated 124 mg/dL (0-99); Total Protein 5.8 g/dL (6.4-8.2); Troponin I 0.06 ng/mL (0.02-0.05)
[2018-11-10 09:37] LABS: Creatine Kinase 61 U/L (39-308)
[2018-11-10] MEDS: Metoprolol Tartrate 25 MG Tablet PO SCH ×2 (11:17→21:24)
[2018-11-10] MEDS: Acetaminophen 325 MG Tablet PO PRN (11:17)
--- NOTE | 2018-11-10 11:46 | ECG ---
Date Performed: 11/10/2018 Time Performed: 07:21:10 PTAGE: 72 years EKG: Sinus rhythm WITH FIRST DEGREE AV BLOCK WITH FREQUENT VENTRICULAR PREMATURE COMPLEXES MINIMAL VOLTAGE CRITERIA FO R LVH, CONSIDER NORMAL VARIANT INFERIOR MYOCARDIAL INFARCTION , PROBABLY OLD WITH POSTERIOR EXTENSION ANTEROLATERAL MYOCARDIAL INFARCTION , OF INDETERMINATE AGE ABNORMAL ECG Since the PREVIOUS TRACING , no significant change noted PREVIOUS TRACIN11/09/2018 17.04 DOCTOR: Ever Noe Interpretating Date/Time 11/10/2018 11:44:37
--- NOTE | 2018-11-10 11:46 | ECG ---
Date Performed: 11/10/2018 Time Performed: 00:18:28 PTAGE: 72 years EKG: Sinus bradycardia with frequent PVCs with 1st degree A-V block Left axis deviation Inferior infarct - age undetermined Anterolateral infarct - age undetermined Abnormal ECG Since the previous tracing, no significant change noted NO PREVIOUS TRACING DOCTOR: Ever Noe Interpretating Date/Time 11/10/2018 11:44:49
--- NOTE | 2018-11-10 11:47 | ECG ---
Date Performed: 11/09/2018 Time Performed: 17:04:48 PTAGE: 72 years EKG: Sinus rhythm WITH FIRST DEGREE AV BLOCK WITH FREQUENT VENTRICULAR PREMATURE COMPLEXES POSSIBLE LEFT ATRIAL ENLARG EMENT INTRAVENTRICULAR CONDUCTION DELAY LEFT VENTRICULAR HYPERTROPHY AND ST-T CHANGE INFERIOR MYOCARD IAL INFARCTION ANTEROLATERAL MYOCARDIAL INFARCTION ABNORMAL ECG Since the PREVIOUS TRACING , no significant change noted PREVIOUS TRACIN06/01/2017 15.56 DOCTOR: Ever Noe Interpretating Date/Time 11/10/2018 11:44:59
--- NOTE | 2018-11-10 13:19 | MB ---
cc: Quirino Craig MD DATE: 11/10/2018 REASON FOR CONSULTATION: Syncope and elevated troponin. HISTORY OF PRESENT ILLNESS: The patient is a very pleasant 72-year-old gentleman known to me, but somewhat lost to followup. The patient had been having difficulty with his primary care physician and then lost his referrals and so has not seen me in probably more than a year, according to his (I will review my office chart when I get back home). The patient was doing well, but not taking any of his medications due to his lack of primary care physician. He was lying in bed yesterday and began feeling lightheaded, dizzy and short of breath and apparently passed out and fell on the floor. He is unclear for how long he passed out for, but he does not think it was too long based on what was on television at the time. Because of all this, he presented to the hospital where his troponins were slightly elevated. He is currently asymptomatic, denying any current or previous chest pain. No further lightheadedness, dizziness or shortness of breath. PAST MEDICAL HISTORY: 1. Coronary artery disease, status post CABG. 2. Noncompliance. 3. Hypertension. 4. Hyperlipidemia. CURRENT MEDICATIONS: 1. Ecotrin 325 mg daily. 2. Lopressor 25 mg b.i.d. 3. Nitro paste. 4. Pravachol 40 mg daily. ALLERGIES: NO KNOWN DRUG ALLERGIES. PHYSICAL EXAMINATION: VITAL SIGNS: Afebrile, pulse 53, respiratory rate 18, BP 104/64, saturating 93 on room air. GENERAL: Pleasant gentleman in no distress. NECK: No JVD. LUNGS: Clear to auscultation bilaterally. CARDIOVASCULAR: Regular rate and rhythm. No significant murmurs appreciated. ABDOMEN: Benign. EXTREMITIES: No edema. LABORATORY DATA: White count 5.1, hematocrit 41.1, platelets 156. INR is 1.1. Sodium 140, potassium 4.1, chloride 106, bicarbonate 28.6, BUN 15, creatinine 0.93, glucose 76. Troponins are 0.09, 0.08, 0.06. LDL is 124. EKG shows sinus rhythm with occasional PVCs and nonspecific ST changes. IMPRESSION: 1. Syncope. The patient had a syncopal episode. He has already had an echocardiogram. Given the high-risk nature of the syncope given it was seated/lying down, I will plan for a loop recorder. My recollection is he had a reduced ejection fraction in the past, but that echocardiogram was probably done in my office and I will have to review it when I get home. I will also see what his echocardiogram here shows. If his ejection fraction is less than 35%, he will require a LifeVest prior to discharge. 2. Elevated troponin. The patient's elevated troponin is nonspecific, but I will have him undergo a nuclear stress test prior to discharge. He has had no chest pain, so I will discontinue his nitroglycerin paste and we will await his echocardiogram to determine whether he requires an angiotensin-converting enzyme/Entresto (he was previously on Entresto, but due to not having a primary care physician, he lost the ability to obtain that on the [employer] plan). Further recommendations based on the above. Thank you again for the opportunity to participate in this patient's care. MD ALLA Gill/maria del carmen , 10:47 AM , 10:54 AM
[2018-11-10] MEDS ORDERED: Regadenoson Inj 0.4 MG/5 ML Syringe IV.PUSH ONE (13:20)
--- NOTE | 2018-11-10 14:49 | NM ---
EXAM DATE: 11/10/2018 2:45 PM EST AGE/SEX: 72 years / Male INDICATIONS:Coronary artery disease. Myocardial infarction Dyspnea and diaphoresis. Syncope. CLINICAL DATA: This is the patient's initial encounter. Patient reports that signs and symptoms have been present for 1 day and indicates a pain score of 0/10. MEDICAL/SURGICAL HISTORY: Hypertension. CABG. COMPARISON: No prior exams available for comparison. DOSE: 8.8 mCi Tc 99m Myoview at rest 27.5 mCi [id number] at stress 0.4 mg Lexiscan STRESS SYMPTOMS: Chest tightness. EJECTION FRACTION: 23 % TECHNIQUE: The patient underwent pharmacologic stress with infusion of prescribed dose. Continuous ECG tracing was monitored during stress. Gated SPECT imaging was performed after stress and conventi onal SPECT imaging was performed at rest. The examination was performed on a SPECT/CT scanner, both attenuation and non-corrected datasets were reviewed. FINDINGS: Distribution: The maximum perfused segment at stress is in the anterolateral wall. Perfusion Study: The pattern of perfusion at stress demonstrates a dilated left ventricular chamber with absence of perfusion to the lateral wall, posterior basal and inferior wall. The anterior and s eptal eden appear perfused without any ischemia. Gated Study: There there is significant global hypokinesis . The ejection fraction is calculated at 23%. RISK CATEGORY: High (>3% Annual Morality Rate) CONCLUSION: 1. Large areas of infarctions and global hypokinesis without any significant ischemia. Possibility o f hibernating myocardium is not excluded. Electronically signed by: Ernestina Gagnon MD Board Certified Radiologist 11/10/2018 2:48 PM EST
--- NOTE | 2018-11-10 15:14 | ECHRPT ---
Indication: SYNCOPE CONCLUSIONS The left ventricular systolic function is severely reduced with an estimated ejection fraction less than 20%. Diffuse hypokinesis, perhaps worse inferiorly Moderately dilated left ventricle. Wall thickness is normal. There is global left ventricular dysfunction. Trace mitral valve regurgitation. Aortic valve sclerosis is present. Trace aortic valve regurgitation. There is trace tricuspid valve regurgitation. The estimated pulmonary arterial pressure is 17.2 mmHg. BP: / HR: Rhythm: Sinus MEASUREMENTS (Male / Female) Normal Values Technical Quality:Excellent 2D ECHO LV Diastolic Diameter PLAX 6.1 cm 4.2 - 5.9 / 3.9 - 5.3 cm LV Systolic Diameter PLAX 5.8 cm IVS Diastolic Thickness 1.4 cm 0.6 - 1.0 / 0.6 - 0.9 cm LVPW Diastolic Thickness 1.3 cm 0.6 - 1.0 / 0.6 - 0.9 cm LV Relative Wall Thickness 0.4 RV Internal Dim ED PLAX 2.3 cm LVOT Diameter 2.2 cm LA Systolic Diameter LX 3.7 cm 3.0 - 4.0 / 2.7 - 3.8 cm LV Ejection Fraction MOD 4C 17.6 % LV Ejection Fraction 4C AL 14.0 % M-MODE Aortic Root Diameter MM 3.1 cm LA Systolic Diameter MM 4.0 cm LA Ao Ratio MM 1.3 AV Cusp Separation MM 1.7 cm DOPPLER AV Peak Velocity 153.0 cm/s AV Peak Gradient 9.4 mmHg AI Peak Velocity 414.0 cm/s AI Peak Gradient 68.6 mmHg AI Pressure Half Time 1300.0 ms LVOT Peak Velocity 113.0 cm/s LVOT Peak Gradient 5.1 mmHg AV Area Cont Eq pk 2.8 cm MV Area PHT 3.0 cm Mitral E Point Velocity 73.5 cm/s Mitral A Point Velocity 83.4 cm/s Mitral E to A Ratio 0.9 LV E' Lateral Velocity 7.2 cm/s Mitral E to LV E' Lateral Ratio 10.2 LV E' Septal Velocity 5.2 cm/s Mitral E to LV E' Septal Ratio 14.2 TR Peak Velocity 134.0 cm/s TR Peak Gradient 7.2 mmHg Right Atrial Pressure 10.0 mmHg Pulmonary Artery Systolic Pressu 17.2 mmHg Right Ventricular Systolic Press 17.2 mmHg PV Peak Velocity 90.9 cm/s PV Peak Gradient 3.3 mmHg FINDINGS LEFT VENTRICLE The left ventricular systolic function is severely reduced with an estimated ejection fraction less than 20%. Moderately dilated left ventricle. Wall thickness is normal. There is global left ventricular dysfunction. RIGHT VENTRICLE Normal right ventricular size and systolic function. LEFT ATRIUM The left atrial size is normal. RIGHT ATRIUM The right atrial size is normal. ATRIAL SEPTUM Normal atrial septal thickness without atrial level shunting by limited color doppler interrogation. AORTA The aortic root and proximal ascending aorta are normal in size on limited imaging. MITRAL VALVE Structurally normal mitral valve. Trace mitral valve regurgitation. AORTIC VALVE Trileaflet aortic valve. Aortic valve sclerosis is present. Trace aortic valve regurgitation. TRICUSPID VALVE Structurally normal tricuspid valve. There is trace tricuspid valve regurgitation. The estimated pulmonary arterial pressure is 17.2 mmHg. PULMONARY VALVE No pulmonary valve regurgitation or stenosis. VESSELS The inferior vena cava is normal in size. PERICARDIUM No pericardial effusion. Quirino Craig MD (Electronically Signed) Final Date:10 November 2018 15:14
--- NOTE | 2018-11-10 15:21 | P.PNIM ---
Subjective Interval history: Patient in no acute distress. No chest pain, no palpitations. Physical Exam Vital signs: Vital Signs 11/09/18 16:51 11/09/18 17:27 11/09/18 19:06 Temperature 97.7 F Pulse Rate 73 70 Respiratory Rate 20 16 Blood Pressure 168/98 H 149/88 H Pulse Oximetry 98 98 96 11/09/18 20:00 11/10/18 00:00 11/10/18 04:00 Temperature 97.8 F 97.5 F L 97.7 F Pulse Rate 69 55 L 53 L Respiratory Rate 18 18 18 Blood Pressure 139/87 102/63 104/64 Pulse Oximetry 95 94 L 95 11/10/18 08:00 11/10/18 10:04 11/10/18 11:14 Temperature Pulse Rate 67 65 Respiratory Rate Blood Pressure 112/84 Pulse Oximetry 93 L 95 Intake & Output 11/09/18 11/10/18 11/10/18 18:59 06:59 18:59 Intake Total 1658 / 1658 139.5 / 139.5 Output Total 600 / 600 Balance 1058 / 1058 139.5 / 139.5 Weight 71.668 kg 87.6 kg Intake: IV 978 / 978 139.5 / 139.5 Heparin/D5W 25,000 U/250 mL 25, 139.5 / 139.5 000 unit In 250 ml @ 900 UNITS/ HR 9 mls/hr IV.CONT TITRATE PRN Rx#:[id number] NS Inj 1,000 ML @ 100 mls/hr IV 978 / 978 .CONT .Q10H MICH Rx#:[id number] Oral 680 / 680 Output: Urine 600 / 600 Other: Weight On Admission 87.6 kg Narrative: General patient in no acute distress, no chest pain. HEENT extraocular movements are intact, clear oral mucosa Cardiovascular S1-S2 audible Respiratory clear to auscultation bilaterally Abdomen soft, nontender, nondistended, normal bowel sounds Extremities no edema 2+ distal pulses in bilateral upper and lower extremities Neuro no neuro deficits. Results - Labs CBC & Chem 7: 11/10/18 08:30 11/10/18 08:30 Laboratory Results - last 24 hr 11/09/18 11/09/18 11/09/18 17:20 17:20 17:20 WBC 6.2 RBC 5.38 Hgb 15.0 Hct 44.0 MCV 81.8 MCH 27.8 MCHC 34.0 RDW 14.2 Plt Count 171 MPV 8.6 Neut % (Auto) 58.6 Lymph % (Auto) 25.5 Ramsey % (Auto) 12.4 H Eos % (Auto) 2.6 Baso % (Auto) 0.9 Neut # (Auto) 3.6 Lymph # (Auto) 1.6 Ramsey # (Auto) 0.8 Eos # (Auto) 0.2 Baso # (Auto) 0.1 WBC Differential . Differential Comment Auto diff final PT 10.8 INR 1.1 APTT 28.1 Sodium 140 Potassium 3.3 L Chloride 106 Carbon Dioxide 27.8 Anion Gap 6 BUN 14 Creatinine 0.85 Estimated GFR 88 L Random Glucose 126 H Calcium 8.3 L Magnesium 2.0 Total Bilirubin 1.1 H AST 26 ALT 25 Alkaline Phosphatase 80 Total Creatine Kinase 104 CK-MB (CK-2) 2.9 Troponin I 0.09 H Total Protein 6.7 Albumin 3.5 Triglycerides Cholesterol LDL Cholesterol, Calc HDL Cholesterol Cholesterol/HDL Ratio TSH 11/09/18 11/10/18 11/10/18 23:40 01:40 08:30 WBC 5.1 RBC 5.00 Hgb 13.7 Hct 41.1 MCV 82.4 MCH 27.4 MCHC 33.3 RDW 14.5 Plt Count 156 MPV 8.6 Neut % (Auto) 56.5 Lymph % (Auto) 27.0 Ramsey % (Auto) 11.6 H Eos % (Auto) 3.8 Baso % (Auto) 1.1 Neut # (Auto) 2.9 Lymph # (Auto) 1.4 Ramsey # (Auto) 0.6 Eos # (Auto) 0.2 Baso # (Auto) 0.1 WBC Differential . Differential Comment Auto diff final PT INR APTT 69.2 H D Sodium Potassium Chloride Carbon Dioxide Anion Gap BUN Creatinine Estimated GFR Random Glucose Calcium Magnesium Total Bilirubin AST ALT Alkaline Phosphatase Total Creatine Kinase 72 CK-MB (CK-2) Troponin I 0.08 H Total Protein Albumin Triglycerides 48 Cholesterol 175 LDL Cholesterol, Calc 120 H HDL Cholesterol 45.1 Cholesterol/HDL Ratio 3.88 TSH 1.420 11/10/18 11/10/18 08:30 08:30 WBC RBC Hgb Hct MCV MCH MCHC RDW Plt Count MPV Neut % (Auto) Lymph % (Auto) Ramsey % (Auto) Eos % (Auto) Baso % (Auto) Neut # (Auto) Lymph # (Auto) Ramsey # (Auto) Eos # (Auto) Baso # (Auto) WBC Differential Differential Comment PT INR APTT 62.5 H Sodium 140 Potassium 4.1 D Chloride 106 Carbon Dioxide 28.6 Anion Gap 5 BUN 15 Creatinine 0.93 Estimated GFR 80 L Random Glucose 76 Calcium 8.2 L Magnesium Total Bilirubin 1.5 H AST 22 ALT 25 Alkaline Phosphatase 63 Total Creatine Kinase 61 CK-MB (CK-2) Troponin I 0.06 H Total Protein 5.8 L D Albumin 3.0 L Triglycerides 72 Cholesterol 182 LDL Cholesterol, Calc 124 H HDL Cholesterol 43.6 Cholesterol/HDL Ratio 4.17 TSH 1.200 - Imaging Impressions Chest X-Ray 11/09/18 17:18 CONCLUSION: No acute cardiopulmonary disease. Head CT 11/09/18 17:26 CONCLUSION: Unremarkable study. . Myocardial Perfusion Scan Nuc Med 11/10/18 00:00 CONCLUSION: 1. Large areas of infarctions and global hypokinesis without any significant ischemia. Possibility of hibernating myocardium is not excluded. Assessment and Plan - Assessment (1) ACS (acute coronary syndrome) Code(s): I24.9 - Acute ischemic heart disease, unspecified Status: Acute (2) Dehydration Code(s): E86.0 - Dehydration Status: Acute (3) Syncope Code(s): R55 - Syncope and collapse Status: Acute - Plan This patient is a 72-year-old male with a diagnosis of hypertension, coronary artery disease, Street [place] as per documentation, status post coronary artery bypass graft the patient presented to our emergency department after a syncopal episode that occurred last night. Patient states he was watching the game on television when he suddenly felt shortness of breath followed by a syncopal episode that lasted a few minutes. He said he woke up on the floor and noted at the game was still on. 1. Syncope 2. Systolic CHF 3. CAD/DLD As mentioned above the patient had a syncopal episode. EKG was done which showed first-degree AV block as well as PVCs. No other significant changes. Troponins were elevated and peaked at 0.9 that showed a downtrend. 2D echocardiogram shows ejection fraction less than 35%. Cardiology was consulted to evaluate the patient. Plan will likely be for the patient to undergo loop recorder placement as per cardiology's note. Stress test done which shows large areas of infarction. Global hypokinesis. Will follow up with cardiology. Monitor on telemetry. Continue aspirin, statin, beta-jade. The patient will also likely benefit from JULEE inhibitor or ARB given his systolic CHF. 4. HTN Continue current meds. BP under control. Lovenox for DVT prophylaxis. (3) Syncope Qualifiers: Syncope type: unspecified Qualified Code(s): R55 - Syncope and collapse
[2018-11-10] MEDS: Enoxaparin Inj 40 MG/0.4 ML Syringe SQ SCH (21:24)
[2018-11-11] MEDS: Sod Chloride 0.9% Inj 1,000 ML IV.CONT SCH ×3 (05:22→15:03)
[2018-11-11] MEDS: Metoprolol Tartrate 25 MG Tablet PO SCH ×2 (09:00→21:55)
--- NOTE | 2018-11-11 09:04 | P.PNCA ---
Subjective Interval history: Pt doing well, no changes, no complaints. Medications and Allergies Active Medications: Active Medications Acetaminophen (Tylenol) 650 mg PO Q4H PRN PRN Reason: Temp > 100.4 Last Admin: 11/10/18 11:17 Dose: 650 mg Aspirin (Aspirin Chew) 81 mg PO DAILY [facility] Last Admin: 11/11/18 09:00 Dose: 81 mg Atorvastatin Calcium (Lipitor) 40 mg PO HS [facility] Last Admin: 11/10/18 21:24 Dose: 40 mg Docusate Sodium (Colace) 100 mg PO BID PRN PRN Reason: CONSTIPATION Enoxaparin Sodium (Lovenox Inj) 40 mg SQ HS [facility] Last Admin: 11/10/18 21:24 Dose: 40 mg Sodium Chloride (Ns Inj) 1,000 mls @ 100 mls/hr IV.CONT .Q10H [facility] Last Admin: 11/11/18 05:22 Dose: 100 mls/hr Metoprolol Tartrate (Lopressor) 25 mg PO BID [facility] Last Admin: 11/11/18 09:00 Dose: 25 mg Ondansetron HCl (Zofran Inj) 4 mg IV.PUSH Q6H PRN PRN Reason: NAUSEA OR VOMITING Sodium Chloride (Ns Inj) 2 ml IV.FLUSH BID [facility] Last Admin: 11/11/18 09:00 Dose: Not Given Sodium Chloride (Ns Inj) 2 ml IV.FLUSH UNSCH PRN PRN Reason: FLUSH AFTER USING IV ACCESS Sodium Chloride (Ns Flush) 2 ml IV.FLUSH BID [facility] Last Admin: 11/11/18 09:00 Dose: Not Given Sodium Chloride (Ns Flush) 2 ml IV.FLUSH PRN PRN PRN Reason: FLUSH AFTER USING IV ACCESS Allergies Allergy/AdvReac Type Severity Reaction Status Date / Time No Known Allergies Allergy Verified 11/09/18 16:57 Home Medications Medication Instructions Recorded Confirmed Type aspirin [Aspirin Low Dose] 81 mg PO DAILY 11/09/18 11/09/18 History Physical Exam Vital signs: Vital Signs 11/10/18 10:04 11/10/18 11:14 11/10/18 12:00 Temperature 97.4 F L Pulse Rate 65 Respiratory Rate Blood Pressure 112/84 Pulse Oximetry 93 L 95 95 11/10/18 16:00 11/10/18 20:00 11/11/18 00:00 Temperature 97.6 F 97.5 F L 97.2 F L Pulse Rate 73 70 62 Respiratory Rate 20 18 18 Blood Pressure 117/82 106/69 106/78 Pulse Oximetry 95 94 L 94 L 11/11/18 04:00 Temperature 97.2 F L Pulse Rate 67 Respiratory Rate 20 Blood Pressure 124/88 Pulse Oximetry 94 L Intake & Output 11/10/18 11/11/18 11/11/18 18:59 06:59 18:59 Intake Total 1379.5 / 1379.5 1120 / 1120 Output Total 150 / 150 225 / 225 Balance 1229.5 / 1229.5 895 / 895 Weight 87.6 kg Intake: IV 1139.5 / 1139.5 1000 / 1000 Heparin/D5W 25,000 U/250 mL 25, 139.5 / 139.5 000 unit In 250 ml @ 900 UNITS/ HR 9 mls/hr IV.CONT TITRATE PRN Rx#:[id number] NS Inj 1,000 ML @ 100 mls/hr IV 1000 / 1000 1000 / 1000 .CONT .Q10H [facility] Rx#:[id number] Oral 240 / 240 120 / 120 Output: Urine 150 / 150 225 / 225 Other: # Bowel Movements 1 0 - Constitutional no acute distress - Routine HEENT Exam Head: Present: normocephalic Eye: Present: scleral injection ENT: Present: mucous membranes moist - Routine Neck Exam Absent: JVD - Routine Cardiovascular Exam Present: RRR - Routine Extremities Exam Absent: edema Results 11/10/18 08:30 11/10/18 08:30 Cardiac Enzymes 11/09/18 11/09/18 11/10/18 Range/Units 17:20 23:40 08:30 AST 26 22 (15-37) U/L CK-MB (CK-2) 2.9 (0.5-3.6) ng/mL Troponin I 0.09 H 0.08 H 0.06 H (0.02-0.05) ng/mL Coagulation 11/09/18 11/10/18 11/10/18 Range/Units 17:20 01:40 08:30 PT 10.8 (9.8-11.6) sec APTT 28.1 69.2 H D 62.5 H (23.4-31.7) sec Lipids 11/09/18 11/10/18 Range/Units 23:40 08:30 Triglycerides 48 72 (42-150) mg/dL Cholesterol 175 182 (120-200) mg/dL HDL Cholesterol 45.1 43.6 (40.0-60.0) mg/dL Cholesterol/HDL Ratio 3.88 4.17 Ratio CBC 11/09/18 11/10/18 Range/Units 17:20 08:30 WBC 6.2 5.1 (4.0-11.0) th/mm3 RBC 5.38 5.00 (4.50-5.90) mil/mm3 Hgb 15.0 13.7 (13.0-17.0) gm/dL Hct 44.0 41.1 (39.0-51.0) % Plt Count 171 156 (150-450) th/mm3 Neut # (Auto) 3.6 2.9 (1.8-7.7) th/mm3 Lymph # (Auto) 1.6 1.4 (1.0-4.8) th/mm3 [place] # (Auto) 0.8 0.6 (0.0-0.9) th/mm3 Eos # (Auto) 0.2 0.2 (0.0-0.4) th/mm3 Baso # (Auto) 0.1 0.1 (0.0-0.2) th/mm3 Comprehensive Metabolic Panel 11/09/18 11/10/18 Range/Units 17:20 08:30 Sodium 140 140 (136-145) meq/L Potassium 3.3 L 4.1 D (3.5-5.1) meq/L Chloride 106 106 (98-107) meq/L Carbon Dioxide 27.8 28.6 (21.0-32.0) meq/L BUN 14 15 (7-18) mg/dL Creatinine 0.85 0.93 (0.60-1.30) mg/dL Calcium 8.3 L 8.2 L (8.5-10.1) mg/dL AST 26 22 (15-37) U/L ALT 25 25 (12-78) U/L Alkaline Phosphatase 80 63 (45-117) U/L Total Protein 6.7 5.8 L D (6.4-8.2) g/dL Albumin 3.5 3.0 L (3.4-5.0) g/dL Intake and Output 12/16/18 12/17/18 12/17/18 22:59 06:59 14:59 Intake Total 1240 / 1240 1120 / 1120 Output Total 150 / 150 225 / 225 Balance 1090 / 1090 895 / 895 Intake: IV 1000 / 1000 1000 / 1000 NS Inj 1,000 ML @ 100 mls/hr IV 1000 / 1000 1000 / 1000 .CONT .Q10H [facility] Rx#:[id number] Oral 240 / 240 120 / 120 Output: Urine 150 / 150 225 / 225 Other: # Bowel Movements 1 0 Weight 87.6 kg - Imaging and Cardiology Imaging: Impressions Chest X-Ray 11/09/18 17:18 CONCLUSION: No acute cardiopulmonary disease. Head CT 11/09/18 17:26 CONCLUSION: Unremarkable study. . Myocardial Perfusion Scan Nuc Med 11/10/18 00:00 CONCLUSION: 1. Large areas of infarctions and global hypokinesis without any significant ischemia. Possibility of hibernating myocardium is not excluded. Assessment and Plan - Assessment (1) Ischemic cardiomyopathy Code(s): I25.5 - Ischemic cardiomyopathy Status: Acute Plan: on bb; will restart arb; he stopped entresto at home due to cost, not having a pcp to do auth; plan for ICD due to declining LVEFm, now 20% w/ concerning syncopal episode. (2) Syncope Code(s): R55 - Syncope and collapse Status: Acute Plan: ef 20%; seated syncope, asked EP to eval for possible aicd (2) Syncope Qualifiers: Syncope type: unspecified Qualified Code(s): R55 - Syncope and collapse
[2018-11-11 09:13] LABS: Hematocrit 42.5 % (39.0-51.0); Hemoglobin 13.9 gm/dL (13.0-17.0); Mean Corpuscular HGB Conc 32.7 % (32.0-36.0); Mean Corpuscular Hemoglobin 27.1 pg (27.0-34.0); Mean Corpuscular Volume 82.9 fL (80.0-100.0); Mean Platelet Volume 8.8 fL (7.0-11.0); Platelet Count 148 th/mm3 (150-450); Red Blood Count 5.13 mil/mm3 (4.50-5.90); Red Cell Distribution Width 14.4 % (11.6-17.2); White Blood Count 5.2 th/mm3 (4.0-11.0)
[2018-11-11 09:47] LABS: Anion Gap 5 meq/L (5-15); Blood Urea Nitrogen 14 mg/dL (7-18); Calcium 8.4 mg/dL (8.5-10.1); Carbon Dioxide 29.1 meq/L (21.0-32.0); Chloride 106 meq/L (98-107); Glomerular Filtration Rate Greater Than 89 mL/min (>89); Glucose,Random 72 mg/dL (74-106); Magnesium 1.9 mg/dL (1.5-2.5); Potassium 3.9 meq/L (3.5-5.1); Sodium 140 meq/L (136-145)
--- NOTE | 2018-11-11 14:34 | P.PNIM ---
Subjective Interval history: Patient in no acute distress. No chest pain. Physical Exam Vital signs: Vital Signs 11/10/18 16:00 11/10/18 20:00 11/11/18 00:00 Temperature 97.6 F 97.5 F L 97.2 F L Pulse Rate 73 70 62 Respiratory Rate 20 18 18 Blood Pressure 117/82 106/69 106/78 Pulse Oximetry 95 94 L 94 L 11/11/18 04:00 11/11/18 08:00 11/11/18 12:00 Temperature 97.2 F L 97.6 F 97.7 F Pulse Rate 67 68 67 Respiratory Rate 20 18 18 Blood Pressure 124/88 143/92 H 150/90 H Pulse Oximetry 94 L 93 L 93 L 11/11/18 13:20 Temperature Pulse Rate Respiratory Rate Blood Pressure Pulse Oximetry 94 L Intake & Output 11/10/18 11/11/18 11/11/18 18:59 06:59 18:59 Intake Total 1379.5 / 1379.5 1120 / 1120 Output Total 150 / 150 225 / 225 250 / 250 Balance 1229.5 / 1229.5 895 / 895 -250 / -250 Weight 87.6 kg Intake: IV 1139.5 / 1139.5 1000 / 1000 Heparin/D5W 25,000 U/250 mL 25, 139.5 / 139.5 000 unit In 250 ml @ 900 UNITS/ HR 9 mls/hr IV.CONT TITRATE PRN Rx#:[id number] NS Inj 1,000 ML @ 100 mls/hr IV 1000 / 1000 1000 / 1000 .CONT .Q10H [facility] Rx#:[id number] Oral 240 / 240 120 / 120 Output: Urine 150 / 150 225 / 225 250 / 250 Other: # Bowel Movements 1 0 Narrative: General patient in no acute distress, no chest pain. HEENT extraocular movements are intact, clear oral mucosa Cardiovascular S1-S2 audible Respiratory clear to auscultation bilaterally Abdomen soft, nontender, nondistended, normal bowel sounds Extremities no edema 2+ distal pulses in bilateral upper and lower extremities Neuro no neuro deficits. Results - Labs CBC & Chem 7: 11/11/18 06:56 11/11/18 06:56 Laboratory Results - last 24 hr 11/11/18 11/11/18 11/11/18 06:56 06:56 06:56 WBC 5.2 RBC 5.13 Hgb 13.9 Hct 42.5 MCV 82.9 MCH 27.1 MCHC 32.7 RDW 14.4 Plt Count 148 L MPV 8.8 APTT 32.2 H D Sodium 140 Potassium 3.9 Chloride 106 Carbon Dioxide 29.1 Anion Gap 5 BUN 14 Creatinine 0.81 Estimated GFR Greater than 89 Random Glucose 72 L Calcium 8.4 L Magnesium 1.9 - Imaging Impressions Myocardial Perfusion Scan Nuc Med 11/10/18 00:00 CONCLUSION: 1. Large areas of infarctions and global hypokinesis without any significant ischemia. Possibility of hibernating myocardium is not excluded. Assessment and Plan - Assessment (1) ACS (acute coronary syndrome) Code(s): I24.9 - Acute ischemic heart disease, unspecified Status: Acute (2) Dehydration Code(s): E86.0 - Dehydration Status: Acute (3) Syncope Code(s): R55 - Syncope and collapse Status: Acute - Plan This patient is a 72-year-old male with a diagnosis of hypertension, coronary artery disease, [place] as per documentation, status post coronary artery bypass graft the patient presented to our emergency department after a syncopal episode that occurred last night. Patient states he was watching the game on television when he suddenly felt shortness of breath followed by a syncopal episode that lasted a few minutes. He said he woke up on the floor and noted at the game was still on. 1. Syncope 2. Systolic CHF 3. CAD/DLD 11/11/18 Cardiology evaluated the patient and recommendations are for the patient to under ICD placement likely today given his poor EF less than 20%. Continue to monitor on telemetry. Losartan added to the pts medications given his htn and systolic dysfunction Continue aspirin. As mentioned above the patient had a syncopal episode. EKG was done which showed first-degree AV block as well as PVCs. No other significant changes. Troponins were elevated and peaked at 0.9 that showed a downtrend. Stress test done which shows large areas of infarction. Global hypokinesis. Will follow up with cardiology. Monitor on telemetry. Continue aspirin, statin, beta-jade, Losartan. 4. HTN Continue current meds. Losartan added. Lovenox for DVT prophylaxis. (3) Syncope Qualifiers: Syncope type: unspecified Qualified Code(s): R55 - Syncope and collapse
[2018-11-11] MEDS: Acetaminophen 325 MG Tablet PO PRN ×2 (15:02→20:50)
[2018-11-11] MEDS: Enoxaparin Inj 40 MG/0.4 ML Syringe SQ SCH (20:49)
[2018-11-12] MEDS: Sod Chloride 0.9% Inj 1,000 ML IV.CONT SCH ×3 (00:24→10:40)
[2018-11-12 07:47] LABS: Hematocrit 42.1 % (39.0-51.0); Hemoglobin 14.2 gm/dL (13.0-17.0); Mean Corpuscular HGB Conc 33.8 % (32.0-36.0); Mean Corpuscular Hemoglobin 27.5 pg (27.0-34.0); Mean Corpuscular Volume 81.5 fL (80.0-100.0); Mean Platelet Volume 8.7 fL (7.0-11.0); Platelet Count 156 th/mm3 (150-450); Red Blood Count 5.17 mil/mm3 (4.50-5.90); Red Cell Distribution Width 14.3 % (11.6-17.2); White Blood Count 5.7 th/mm3 (4.0-11.0)
[2018-11-12] MEDS: Metoprolol Tartrate 25 MG Tablet PO SCH (08:25)
[2018-11-12] MEDS ORDERED: LORazepam 1 MG Tablet SL PRN (09:08)
[2018-11-12] MEDS ORDERED: Sodium Chlor 0.9% Inj 500 ML IV.CONT SCH ×2 (10:00)
[2018-11-12] MEDS: Carvedilol 6.25 MG Tablet PO SCH ×2 (10:39→21:19)
--- NOTE | 2018-11-12 11:24 | MB ---
cc: Anabel Edmond MD DATE: 11/11/2018 REASON FOR CONSULTATION: Congestive heart failure, high risk of sudden for electrophysiology study and device insertion. HISTORY OF PRESENT ILLNESS: Mr. Westfall is a 72-year-old gentleman with history of coronary artery disease, coronary artery bypass grafting, previous ejection fraction over a year ago was around 20%, ____ ejection fraction 20%; was admitted due to syncopal episode. Echocardiogram was repeated during hospitalization; ejection fraction 20%. I was consulted for evaluation and management. His chart was reviewed. The patient was evaluated. ALLERGIES: NONE. SOCIAL HISTORY: The patient still smoking. FAMILY HISTORY: Noncontributory to his current medical condition. MEDICATIONS: Mr. Westfall is currently on: 1. Aspirin 81 mg a day. 2. Lipitor 40 mg a day. 3. Lovenox subcutaneously. 4. Losartan 50 mg a day. 5. Metoprolol. REVIEW OF SYSTEMS: Currently, the gentleman referred no chest pain, no chest discomfort. No vomiting. No fever. PHYSICAL EXAMINATION: GENERAL: Alert, fully oriented. VITAL SIGNS: Blood pressure on evaluation 152/85, pulse 69, respiratory rate 18. LUNGS: Ventilated. CARDIOVASCULAR: S1, S2; no gallop, no murmur. ABDOMEN: Soft. No mass, no bruit. EXTREMITIES: No edema. DIAGNOSTIC DATA: Electrocardiogram indicated sinus rhythm, diffuse ST and T-wave changes. LABORATORY DATA: Hemoglobin 13.9, white blood cell 5.2. INR 1.1. Potassium is 3.9, creatinine 0.81. Troponin 0.06. HDL 43, LDL 124. ASSESSMENT AND RECOMMENDATIONS: Mrs. Westfall has coronary artery disease. He has coronary artery bypass grafting. Over a year and a half ago ejection fraction was around 20%. This gentleman passed out and fell on the floor. He does not remember. In view of the low ejection fraction and coronary artery disease, malignant tachyarrhythmias should be suspected. I had a long conversation with him. Electrophysiology study and device insertion for sudden prevention was discussed. The risk, the nature and the benefits of the procedure were clearly said to him. Risks include pneumothorax, cardiac perforation, stroke and even . He understood and agreed to proceed. I will keep the gentleman n.p.o. after breakfast; procedure will be scheduled in the morning. MD Eden Shaffer , 09:07 AM , 09:17 AM
--- NOTE | 2018-11-12 14:39 | P.PNIM ---
Subjective Interval history: Patient reports he is feeling okay today. He denies chest pain or lightheadedness. Scheduled to have AICD placed today. Physical Exam Vital signs: Last Vital Signs Temp 98.1 F 11/12/18 04:00 Pulse 64 11/12/18 12:00 Resp 17 11/12/18 04:00 BP 158/82 H 11/12/18 04:00 Pulse Ox 94 L 11/12/18 04:00 Intake & Output 11/10/18 11/11/18 11/12/18 11/13/18 06:59 06:59 06:59 06:59 Intake Total 1658 / 1658 2499.5 / 2499.5 2934.1 / 2934.1 1000 / 1000 Output Total 600 / 600 375 / 375 2500 / 2500 Balance 1058 / 1058 2124.5 / 2124.5 434.1 / 434.1 1000 / 1000 Weight 87.6 kg 87.6 kg 87.6 kg Narrative: General patient in no acute distress, no chest pain. HEENT extraocular movements are intact, clear oral mucosa Cardiovascular S1-S2 audible Respiratory clear to auscultation bilaterally Abdomen soft, nontender, nondistended, normal bowel sounds Extremities no edema 2+ distal pulses in bilateral upper and lower extremities Neuro no neuro deficits. Results Labs CBC & Chem 7: 11/12/18 07:01 11/11/18 06:56 Assessment and Plan (1) Ischemic cardiomyopathy: Code(s): I25.5 - Ischemic cardiomyopathy Status: Acute (2) Syncope: Code(s): R55 - Syncope and collapse Status: Acute Plan 72-year-old male with a diagnosis of hypertension, coronary artery disease, [place] as per documentation, status post coronary artery bypass graft the patient presented to our emergency department after a syncopal episode that occurred last night. Patient states he was watching the game on television when he suddenly felt shortness of breath followed by a syncopal episode that lasted a few minutes. He said he woke up on the floor and noted at the game was still on. 1. Syncope 2. Systolic CHF 3. CAD/DLD 4. HTN EKG was done which showed first-degree AV block as well as PVCs. No other significant changes. Troponins were elevated and peaked at 0.9 that showed a downtrend. Stress test done which shows large areas of infarction. Global hypokinesis. Cardiology evaluated the patient and recommendations are for the patient to under ICD placement likely today given his poor EF less than 20%. Continue to monitor on telemetry. Losartan added to the pts medications given his HTN and systolic dysfunction Continue aspirin. Plan for AICD placement today Continue aspirin, statin, beta-jade, Losartan. Lovenox for DVT prophylaxis. Discharge Planning: Possible DC tomorrow if no other issues. Progress Note: Quality VTE Deep Vein Thrombosis/Pulmonary Embolism Present on Admission: No _ (1) Syncope Qualifiers: Encounter type: Syncope type: unspecified Qualified Code(s): R55 - Syncope and collapse
[2018-11-12] MEDS ORDERED: ceFAZolin 1 GM Premix Inj 2 GM/100 ML PIGGYBACK IV.SIG ONE (16:22)
[2018-11-12] MEDS ORDERED: Heparin/NS PF Inj 500 ML ONE (16:23)
[2018-11-12] MEDS ORDERED: Lidocaine PF 1% Inj 30 ML Vial ONE (16:24)
[2018-11-12] MEDS ORDERED: Isoproterenol HCl Inj 0.2 MG/ML Ampul ONE (16:41)
--- NOTE | 2018-11-12 17:04 | CATHPROC ---
Patient Name: Dre Westfall Study #: [id number] Initial MD: Anabel Edmond Date of : 1945 Study Date: 11/12/2018 Cardiac Catheterization Report 11/12/2018 5:19:10 PM Financial #: [id number] 1 of 8 Patient Name: Dre Westfall Study #: [id number] Initial MD: Anabel Edmond Date of : 1945 Study Date: 11/12/2018 Entire Case Report Patient Information Patient Name Dre Westfall Date of 1945 Age 72 years Financial # [id number] Gender M AlternateID Lab Number 6 Room Number 1436 Height (in) 70.0 Height (cm) 177.8 BSA 2.06 Weight (lbs) 192.7 Weight (kg) 87.6 Patient Address/Phone Number Home Address [facility] Home Phone Number [address] [facility] [address] Study Information Study Number Admission Scheduled Start Study Start [id number] Nov 09 2018 6:44PM 11/12/2018 Nov 12 2018 4:07PM [facility] Cardiac Pacer/ICD Admit Source Facility Department Other [facility] - Director Drug Physician and Clinical Staff Initial Anabel Holloway Anatomical Embalmer Corrine Zaldivar,APARNA Anatomical Embalmer Antelmo BurrRT(R) Other Anesthesia, JACQUARD LOOM CARPET WEAVER Recorder Shona Brian RN RN Mcnally, Dan, RN Scrub Yissel ArmstrongRT(R) TECH2 11/12/2018 5:19:10 PM Financial #: [id number] 2 of 8 Patient Name: Dre Westfall Study #: [id number] Initial MD: Anabel Edmond Date of : 1945 Study Date: 11/12/2018 Equipment Time Roof Fixer Description Size Mfg Part Number Used/Scraped [id number] 16:16 [employer] BLANKET,WARM AIR CCL * Used *[id number] 16:16 [employer] PACK, CCL CUSTOM * Used *[id number] 16:16 MEDLINE PACER VICENTE, LIMB * 2530 *[id number] Used [id number] 16:18 [employer] MED[employer] CATHETER, JSN, QUAD FR 5 Used *[id number] 793484 16:18 [employer] MED[employer] CATHETER, JSN, QUAD FR 5 Used *[id number] 249167 16:18 [employer] MEDICAL CATHETER, JSN, QUAD FR 5 Used *[id number] 647399 16:18 [employer] MED[employer] CATHETER, JSN, QUAD FR 5 Used *[id number] 949086 16:17 [employer] MED[employer] SHEATH, EPS, FR5 FAST CATH FR 5 Used *[id number] 655198 16:17 [employer] MED[employer] SHEATH, EPS, FR5 FAST CATH FR 5 Used *[id number] 559385 16:17 [employer] MED[employer] SHEATH, EPS, FR5 FAST CATH FR 5 Used *[id number] 316567 16:17 [employer] MED[employer] SHEATH, EPS, FR6 FAST CATH FR 6 Used *[id number] Insurance Information Insurance Payor Private Health Insurance Third Alliance Party Third Alliance Party Number [facility]US [facility] History: Allergies Allergy Reaction No Known Allergies History: Risk Factors Hypertension Previous SC Yes Yes Prior CABG Prior CABGDate Yes 01/25/2016 History: Risk Factors Selection Items Current Smoker Labs 11/12/2018 5:19:10 PM Financial #: [id number] 3 of 8 Patient Name: Dre Westfall Study #: [id number] Initial MD: Anabel Edmond Date of : 1945 Study Date: 11/12/2018 Hgb (g/dl) Hct (%) WBC (l/cumm) Platelets (thousands) 11.60-17.00 35.00-51.00 4.00-11.00 150.00-450.00 14.2 42.1 5.7 156 Glucose (mg/dl) BUN (mg/dl) Creatinine (mg/dl) BUN:Creatinine (1:x) 74.00-106.00 7.00-18.00 0.50-1.30 10.00-20.00 72 14 0.8 17.5 Na (meq/l) K (meq/l) 136.00-145.00 3.50-5.10 140 3.9 INR (PTT:PT) 0.90-1.10 1.1 Cholesterol (mg/dl) HDL (mg/dl) 120.00-200.00 40.00-60.00 182 44 Medication Medication Total Dose (Bolus/Oral) Medication Total Dosage/Unit 1% XYLOCAINE 20 mL Medications (Bolus/Oral) Medication Time Given Dosage/Unit Administered By Reason 1% XYLOCAINE 11/12/2018 4:36:05 PM 20 mL Anabel Edmond 20 mL 1% XYLOCAINE given in lab by Anabel Edmond in Right Groin via Subcutaneous. Ordered by Shannan Edmond. 11/12/2018 5:19:10 PM Financial #: [id number] 4 of 8 Patient Name: Dre Westfall Study #: [id number] Initial MD: Anabel Edmond Date of : 1945 Study Date: 11/12/20 18 Medication (Drip) Medication Time Given Dosage/Unit Concentration/Unit Diluent (ml) Solution ANCEF 11/12/2018 4:19:40 PM 2 g 2 g ANCEF given in lab by Anesthesia, JACQUARD LOOM CARPET WEAVER via Peripheral IV. Ordered by Anabel Edmond. Reason: As pe r physicians verbal order. ISUPREL 11/12/2018 4:48:16 PM 2 mcg/min 1 mg 250 NaCl .9 2 mcg/min ISUPREL given in lab by Anesthesia, JACQUARD LOOM CARPET WEAVER via Peripheral IV. Pump/Drip Flow = 30 ml/hr using NaCl .9 with a concentration of 1 mg in 250 ml. Ordered by Anabel Edmond. ISUPREL 11/12/2018 4:56:59 PM 0 mcg/min 1 mg 250 NaCl .9 0 mcg/min ISUPREL given in lab by Anesthesia, JACQUARD LOOM CARPET WEAVER via Peripheral IV. Pump/Drip Flow = 0 ml/hr using NaCl .9 with a concentration of 1 mg in 250 ml. Ordered by Anabel Edmond. Discontinued at 11/12/2018 16:57. IV Solutions 11/12/2018 4:09:30 PM 0 mL (IV) NaCl .9 IV Solutions given in lab by Corrine Zaldivar RN in Left Forearm via Peripheral IV. Pump/Drip Flow = 3 0 ml/hr using NaCl .9. Ordered by Anabel Edmond. Reason: As per physicians verbal order. IV Solutions 11/12/2018 4:09:31 PM 0 mL (IV) NaCl .9 Patient arrived on IV Solutions in Right Forearm via Peripheral IV. Pump/Drip Flow = 30 ml/hr using N aCl .9. Ordered by Anabel Edmond. Reason: As per physicians verbal order. VANCOMYCIN DRIP 11/12/2018 4:19:58 PM 1 g 1 g VANCOMYCIN DRIP given in lab by Anesthesia, JACQUARD LOOM CARPET WEAVER via Peripheral IV. Ordered by Anabel Edmond. [place] son: As per physicians verbal order. 11/12/2018 5:19:10 PM Financial #: [id number] 5 of 8 Patient Name: Dre Westfall Study #: [id number] Initial MD: Anabel Edmond Date of : 1945 Study Date: 11/12/2018 Initial Case Assessment Cardiovascular HR NIBP 72 171/106 Edema Present Skin color Skin None Normal Warm Dry Circulatory - Right Pulses Dorsalis Pedis 1 Scale (0,1,2,3,4,d) Circulatory - Left Pulses Dorsalis Pedis 1 Scale (0,1,2,3,4,d) Circulatory - Lower Extremities Color Lower Right Color Lower Left Normal Normal Neurological State Oriented to time-place- Alert Moves all extremities person Respiration - General Respiration Rate SpO2 (%) (B/min) 16 97 Chronological Log Time Study Chronological Log 16:03:05 Patient arrived via Bed. 16:03:06 Patient Name, D.O.B, / Armband Verified By R.N. 16:03:07 Consent signed by the physician and the patient and verified by the Director Drug staff. 16:03:08 Pre-op and post- op instructions given; patient acknowledges understanding of instructions. 16:03:20 Anesthesia at bedside. Assumes care of patient. see records for meds and vitals 16:04:13 Patient has been NPO for More than 6Hrs. 16:04:16 Verbal Stimulation=2 Physical Stimulation=2 Airway=2 Respiration=2 TOTAL=8. (0=absent, 1=li mited, 2=present) 16:09:23 Skin Breakdown- none per pt 16:09:24 Patient Warmer Placed on the Table. 11/12/2018 5:19:10 PM Financial #: [id number] 6 of 8 Patient Name: Dre Westfall Study #: [id number] Initial MD: Anabel Edmond Date of : 1945 Study Date: 11/12/2018 16:09:25 Disposable Defibrillator Pads Placed On Patient. 16:09:25 Magdalena Prominences Protected 16:09:28 A # 20 IV was noted in the Forearm (left). Grade = 0 16:09:29 A # 20 IV was noted in the Forearm (right). Grade = 0 IV Solutions given in lab by Corrine Zaldivar RN in Left Forearm via Peripheral IV. Pump/Drip Fl ow = 30 ml/hr using 16:09:30 NaCl .9. Ordered by Anabel Edmond. Reason: As per physicians verbal order. Patient arrived on IV Solutions in Right Forearm via Peripheral IV. Pump/Drip Flow = 30 ml/hr u sing NaCl .9. Ordered 16:09:31 by Anabel Edmond. Reason: As per physicians verbal order. 16:09:32 History and physical on the chart . 16:09:35 Table restraints applied according to hospital policy Assessment: Initial Case, HR=72 BPM, CKSX=134/106 mmhg, Edema=None, Color=Normal, Skin = Warm, Dry Right Pulses: Kota Ped=1 Left Pulses: Kota Ped=1 16:10:33 Lower Right Extremities: Color=Normal Lower Left Extremities: Color=Normal Neurological: State=Alert, Ox3, CRUZ Respiration: Resp=16 B/min, SpO2=97 % 16:17:25 MD arrived. 16:19:35 Reference ECG taken 2 g ANCEF given in lab by Anesthesia, JACQUARD LOOM CARPET WEAVER via Peripheral IV. Ordered by Anabel Edmond. Reason: As per physicians 16:19:40 verbal order. 1 g VANCOMYCIN DRIP given in lab by Anesthesia, JACQUARD LOOM CARPET WEAVER via Peripheral IV. Ordered by Saima Edmond Reason: As per 16:19:58 physicians verbal order. Time Out. Correct patient, procedure, procedure equipment, site and side verified with physicia n present. Time 16:35:04 concurred by MD, individual staff and JACQUARD LOOM CARPET WEAVER. Time Out #2 - Consents verified, patient in correct position, all results are labled and displa yed, safety precautions 16:35:54 taken, antibiotics administered. Time out concurred by MD, individual staff and JACQUARD LOOM CARPET WEAVER in procedu re 16:36:05 20 mL 1% XYLOCAINE given in lab by Anabel Edmond in Right Groin via Subcutaneous. Ordered b y Anabel Edmond. 16:36:05 Case Start 16:37:14 Vascular access was obtained in the Fem Vein (right). 16:37:19 Vascular access was obtained in the Fem Vein (right). 16:37:19 Vascular access was obtained in the Fem Vein (right). 16:37:19 Vascular access was obtained in the Fem Vein (right). 16:37:22 A SHEATH, EPS, FR5 FAST CATH FR 5 was advanced into the Fem Vein (right) using the Modified Seldinger technique. 16:37:29 A SHEATH, EPS, FR5 FAST CATH FR 5 was advanced into the Fem Vein (right) using the Modified Seldinger technique. 16:37:32 A SHEATH, EPS, FR5 FAST CATH FR 5 was advanced into the Fem Vein (right) using the Modified Seldinger technique. 16:37:35 A SHEATH, EPS, FR6 FAST CATH FR 6 was advanced into the Fem Vein (right) using the Modified Seldinger technique. A CATHETER, JSN, QUAD FR 5 was advanced vis Fem Vein (right) and placed in the CS. Placement wa s visually 16:42:43 confirmed under fluoroscopy. A CATHETER, JSN, QUAD FR 5 was advanced vis Fem Vein (right) and placed in the HIS. Placement w as visually 16:42:55 confirmed under fluoroscopy. A CATHETER, JSN, QUAD FR 5 was advanced vis Fem Vein (right) and placed in the HRA. Placement w as visually 16:42:59 confirmed under fluoroscopy. A CATHETER, JSN, QUAD FR 5 was advanced vis Fem Vein (right) and placed in the RVA. Placement w as visually 16:43:05 confirmed under fluoroscopy. 16:44:29 Incremental Pacing in progress 11/12/2018 5:19:10 PM Financial #: [id number] 7 of 8 Patient Name: Dre Westfall Study #: [id number] Initial MD: Anabel Edmond Date of : 1945 Study Date: 11/12/2018 2 mcg/min ISUPREL given in lab by Anesthesia, JACQUARD LOOM CARPET WEAVER via Peripheral IV. Pump/Drip Flow = 30 ml/h r using NaCl .9 with 16:48:16 a concentration of 1 mg in 250 ml. Ordered by Anabel Edmond. 0 mcg/min ISUPREL given in lab by Anesthesia, JACQUARD LOOM CARPET WEAVER via Peripheral IV. Pump/Drip Flow = 0 ml/hr using NaCl .9 with a 16:56:59 concentration of 1 mg in 250 ml. Ordered by Anabel Edmond. Discontinued at 11/12/2018 16:57. 16:57:52 EP complete. 16:57:58 NOTE: This patient is undergoing an additional procedure while still in the Cardiac Cath L ab. 17:18:46 No case complications noted. 17:18:47 Cine recording checked. 17:19:00 EP Procedure was performed. End Study - Contrast Media Used In Study Contrast Total Opened (mL) Total Used (mL) Total Wasted (mL) Unspecified 0 0 0 End Study - Maximum Contrast Load Max Contrast Load (mL) 547.4 End Study - Radiation Exposure Fluoro Time Fluoro Dose (mGy) Cine Dose (uGym2) (minutes) 0.8 5 52 End Study - Patient Disposition Complications Transferred To Interventional Outcome No Director Drug Holding successful 11/12/2018 5:19:10 PM Financial #: [id number]
[2018-11-12] MEDS ORDERED: fentaNYL Citrate Inj 100 MCG/2 ML Ampul ONE (17:15)
--- NOTE | 2018-11-12 18:13 | CATHPROC ---
Patient Name: Dre Westfall Study #: [id number] Initial MD: Anabel Edmond Date of : 1945 Study Date: 11/12/2018 Cardiac Catheterization Report 11/12/2018 6:13:49 PM Financial #: [id number] 1 of 7 Patient Name: Dre Westfall Study #: [id number] Initial MD: Anabel Edmond Date of : 1945 Study Date: 11/12/2018 Entire Case Report Patient Information Patient Name Dre Westfall Date of 1945 Age 72 years Financial # [id number] Gender M AlternateID Lab Number 6 Room Number 1436 Height (in) 70.0 Height (cm) 177.8 BSA 2.06 Weight (lbs) 192.7 Weight (kg) 87.6 Patient Address/Phone Number Home Address [facility] Home Phone Number [phone] [facility] [address] Study Information Study Number Admission Scheduled Start Study Start [id number] Nov 09 2018 6:44PM 11/12/2018 Nov 12 2018 3:55PM [place] [facility] Cardiac Pacer/ICD Admit Source Facility Department Other [facility] - Clinical Nursing Assistant Physician and Clinical Staff Initial Anabel Holloway Internist Corrine Zaldivar,APARNA Internist Antelmo BurrRT(R) Other Anesthesia, 1ST GRADE TEACHER Recorder Shona Brian RN Scrub Yissel ArmstrongRT(R) TECH2 Procedures Performed Procedure Lead Insertion 11/12/2018 6:13:49 PM Financial #: [id number] 2 of 7 Patient Name: Dre Westfall Study #: [id number] Initial MD: Anabel Edmond Date of : 1945 Study Date: 11/12/2018 Equipment Time Clinical Nursing Intern Description Size Mfg Part Number Used/Scraped DEFIBRILLATOR, INTICA 7 VR-T 17:36 BIOTRONIK VVE-VDDR [id number] Used DX 17:32 [employer]RONIK LEAD, PLEXA PRO-MRI DF 65/15 [id number] Used DERMABOND, ADHESIVE SKIN [id number] 17:10 CORDIS/PACER * Used GLUE MINI *[id number] 17:10 [employer] BLANKET,WARM AIR CCL * Used *[id number] TP-1103 17:10 [employer] SUTURE, STRIP PLUS 1/2" * Used *[id number] 17:10 [employer] PACER VICENTE, LIMB * 2530 *[id number] Used [id number] 17:10 [employer] PACER PACK, PACER CUSTOM * Used *[id number] 17:30 [employer] PACER SAFE SHEATH, FR8, 13CM FR 8 [id number] Used 17:14 Needle Sponge Count 2 22 Used 17:14 Needle Sponge Count 20 200 Used 17:14 Needle Sponge Count 3 3 Used SUTURE, 0 ETHIBOND [CT1] (CX21D), 8pk SUTURE, 2-0 VICRYL [CT1] (YHQ030H) SUTURE, 2-0 VICRYL [CT1] (OGP312N) [facility] PAD, ELECTROSURGICAL 17:10 * [id number] *[id number] Used SURGICAL GROUNDING ORANGE 4230-6400 17:10 [employer] MEDICAL ARMANI. / * Used *84860 Equipment Model, Serial, Lot Number and Expiration Data Description Model Number Serial Number Lot Number Expiration Date DEFIBRILLATOR, INTICA 7 VR-T DX [id number] 04-25-2019 LEAD, PLEXA PRO-MRI DF 65/15 [id number] 08-25-2020 Insurance Information Insurance Payor Private Health Insurance Third Constitution Party Third Constitution Party Number [employer] [facility] History: Allergies Allergy Reaction No Known Allergies 11/12/2018 6:13:49 PM Financial #: [id number] 3 of 7 Patient Name: Dre Westfall Study #: [id number] Initial MD: Anabel Edmond Date of : 1945 Study Date: 11/12/2018 History: Risk Factors Hypertension Dyslipidemia Previous LA Yes Yes Yes Prior CABG Prior CABGDate Yes 01/25/2016 History: Risk Factors Selection Items Current Smoker Labs Hgb (g/dl) Hct (%) WBC (l/cumm) Platelets (thousands) 11.60-17.00 35.00-51.00 4.00-11.00 150.00-450.00 13.9 42.5 5.2 148 Glucose (mg/dl) BUN (mg/dl) Creatinine (mg/dl) BUN:Creatinine (1:x) 74.00-106.00 7.00-18.00 0.50-1.30 10.00-20.00 72 14 0.8 17.5 Na (meq/l) K (meq/l) 136.00-145.00 3.50-5.10 140 3.9 INR (PTT:PT) 0.90-1.10 1.1 Medication Medication Total Dose (Bolus/Oral) Medication Total Dosage/Unit 2% XYLOCAINE 50 mL Medications (Bolus/Oral) Medication Time Given Dosage/Unit Administered By Reason 2% XYLOCAINE 11/12/2018 5:27:04 PM 50 mL Anabel Edmond 50 mL 2% XYLOCAINE given by Anabel Edmond in Left Arm via Subcutaneous. left upper chest 11/12/2018 6:13:49 PM Financial #: [id number] 4 of 7 Patient Name: Dre Westfall Study #: [id number] Initial MD: Anabel Edmond Date of : 1945 Study Date: 11/12/2018 Final Case Assessment Cardiovascular HR NIBP 59 103/70 Edema Present Skin color Skin None Normal Warm Dry Circulatory - Right Pulses Dorsalis Pedis 1 Scale (0,1,2,3,4,d) Circulatory - Left Pulses Dorsalis Pedis 1 Scale (0,1,2,3,4,d) Circulatory - Lower Extremities Color Lower Right Color Lower Left Normal Normal Neurological State Drowsy Moves all extremities Respiration - General Respiration Rate SpO2 (%) O2 (lpm) (B/min) 14 100 4 Chronological Log Time Study Chronological Log 16:57:45 Initial procedure has been completed. Beginning additional procedure. 16:57:46 All EP Catheter(s) removed without difficulty 16:57:55 EP femoral sheaths removed; pressure applied to access site. DB 16:58:47 Anesthesia remains at bedside and continues to assume care of patient. All vital signs grace rded in anesthesia record. 16:58:48 LMA inserted by anesthesia 16:58:53 2% CHLORHEXIDINE GLUCONATE WASH AND NASAL SWIPE DONE PRIOR TO PROCEDURE. 17:00:41 Bovie ground pad applied to: right thigh 17:00:48 Ancef and vancomycin admin during EP case. 11/12/2018 6:13:49 PM Financial #: [id number] 5 of 7 Patient Name: Dre Westfall Study #: [id number] Initial MD: Anabel Edmond Date of : 1945 Study Date: 11/12/2018 17:07:52 Left Upper Chest Prepped Times Two. First Sponge And Instrument Count Done by Yissel Armstrong, RT(R) TECH2. 17:13:19 Hypo's: 3, Sponges: 20, Bovie/scratch: 2 Sutures: 10, Blades: 1, Instruments: 26, Syveck Patches: 0 verified by 17:14:19 Reference ECG taken 17:15:37 A sterile drape was applied after a 5 minute prep drying time. 17:17:23 MD paged 17:19:30 Reference ECG taken Time Out. Correct patient, procedure, procedure equipment, site and side verified with physicia n present. Time 17:26:31 concurred by MD, individual staff and 1ST GRADE TEACHER. Time Out #2 - Consents verified, patient in correct position, all results are labled and displa yed, safety precautions 17:26:37 taken, antibiotics administered. Time out concurred by MD, individual staff and 1ST GRADE TEACHER in procedu re 17:26:52 Case Start 17:27:04 50 mL 2% XYLOCAINE given by Anabel Edmond in Left Arm via Subcutaneous. left upper chest 17:28:34 Vascular access was obtained in the Subclav. Vein (Lft. 17:28:39 Wire inserted 17:28:41 Surgical Incision Made.(left upper chest) 17:29:49 A SAFE SHEATH, FR8, 13CM FR 8 was advanced into the Subclav. Vein (Lft using the [employer]down te chnique. 17:30:12 A LEAD, PLEXA PRO-MRI DF 65/15 was inserted and positioned in the RV. 17:30:24 Lead placement verified under fluoroscopy 17:30:36 The RV lead impedance and threshold being tested. 17:33:41 The RV lead was sutured to the fascia. 17:36:21 A DEFIBRILLATOR, INTICA 7 VR-T DX VVE-VDDR was connected and placed in the pocket. 17:37:10 Pocket flushed with antibiotic solution Second Sponge And Instrument Count Done by Yissel Armstrong, RT(R) TECH2. 17:37:52 Hypo's: 3, Sponges: 20, Bovie/scratch: 2 Sutures: 10, Blades: 1, Instruments: ~INSTRU~, Syveck Patches: 0 verified by 17:39:51 The pocket is being closed now. 17:46:35 A ICD Implant . (Single) 17:47:01 A suture was added to the table 17:48:19 Implantable Device card placed in patient's chart. 17:48:34 PACU called. Spoke to Steele. 17:49:40 Bedside Report will be given. Final Sponge And Instrument Count Done by Yissel Armstrong, RT(R) TECH2. 18:00:53 Hypo's: 3, Sponges: 20, Bovie/scratch: 2 Sutures: 11, Blades: 1, Instruments: 26, Syveck Patches: 0 verified by 18:01:04 The pocket was closed. 18:01:05 Case End (Physician broke scrub) 18:02:27 Steri-strips and a sterile dressing applied to site. 18:03:55 LMA removed by Anesthesia and supplemental oxygen applied by [facility] 11/12/2018 6:13:49 PM Financial #: [id number] 6 of 7 Patient Name: Dre Westfall Study #: [id number] Initial MD: Anabel Edmond Date of : 1945 Study Date: 11/12/2018 Assessment: Final Case, HR=59 BPM, TGPK=716/70 mmhg, Edema=None, Color=Normal, Skin = Warm, Dr y Right Pulses: Kota Ped=1 Left Pulses: Kota Ped=1 18:05:54 Lower Right Extremities: Color=Normal Lower Left Extremities: Color=Normal Neurological: State=Drowsy, CRUZ Respiration: Resp=14 B/min, DuL1=330 %, O2=4 lpm 18:06:39 A sling was placed on the affected arm. 18:06:46 No case complications noted. 18:06:47 Cine recording checked. 18:07:40 Defibrillator and ground pads removed. Skin intact. 18:13:42 Patient moved to stretcher and transported to PACU with 1ST GRADE TEACHER and tech accompanying pt in s table condition End Study - Contrast Media Used In Study Contrast Total Opened (mL) Total Used (mL) Total Wasted (mL) Unspecified 0 0 0 End Study - Maximum Contrast Load Max Contrast Load (mL) 547.4 End Study - Radiation Exposure Fluoro Time Fluoro Dose (mGy) Cine Dose (uGym2) (minutes) 0.5 3 29 End Study - Sheaths Sheaths Pulled By Sheath Hold Time (min) Antelmo Burr 10 End Study - Patient Disposition Complications Transferred To Telemetry Bed 11/12/2018 6:13:49 PM Financial #: [id number]
--- NOTE | 2018-11-12 18:44 | XR ---
EXAM DATE: 11/12/2018 6:36 PM EST AGE/SEX: 72 years / Male INDICATIONS: Post ICD pacemaker placement. CLINICAL DATA: This is the patient's subsequent encounter. Patient reports that signs and symptoms h ave been present for 4 - 6 days and indicates a pain score of Nonresponsive. MEDICAL/SURGICAL HISTORY: . Hypertension. CABG. COMPARISON: [facility] [place] 1V SINGLE AP, 11/09/2018. . FINDINGS: Pacer device from a left subclavian transvenous approach, sternotomy wires and CABG markers are noted . Left basilar airspace disease and patchy right basilar airspace disease noted. No effusions. Cardio megaly. Degenerative changes of the spine. CONCLUSION: Increasing bilateral airspace disease. Electronically signed by: Luciano Jose MD Board Certified Radiologist 11/12/2018 6:42 PM EST
[2018-11-12] MEDS: Acetaminophen 325 MG Tablet PO PRN (21:19)
[2018-11-13] MEDS: ceFAZolin 2 GM Premix Inj 2 GM/50 ML PIGGYBACK IV.SIG SCH ×2 (00:26→08:35)
[2018-11-13] MEDS: Carvedilol 6.25 MG Tablet PO SCH (08:36)
[2018-11-13] MEDS: Sod Chloride 0.9% Inj 1,000 ML IV.CONT SCH (08:43)
[2018-11-13 10:06] VITALS: RESP 16
--- NOTE | 2018-11-13 11:18 | P.PNIM ---
Subjective Interval history: Patient says he is feeling well. Would like to go home. Denies any chest pain. Denies shortness of breath Physical Exam Vital signs: Vital Signs 11/12/18 12:00 11/12/18 14:00 11/12/18 16:00 Temperature 97.9 F Pulse Rate 64 62 78 Respiratory Rate 20 Blood Pressure 131/92 H Pulse Oximetry 94 L 11/12/18 17:53 11/12/18 18:17 11/12/18 18:30 Temperature 97.6 F Pulse Rate 56 L 56 L Respiratory Rate 12 14 Blood Pressure 95/60 L 105/65 Pulse Oximetry 94 L 100 99 11/12/18 18:45 11/12/18 19:00 11/12/18 19:15 Temperature 97.7 F Pulse Rate 60 64 63 Respiratory Rate 12 13 14 Blood Pressure 118/81 153/99 H 150/95 H Pulse Oximetry 97 99 99 11/12/18 19:45 11/12/18 19:57 11/12/18 20:00 Temperature 97.9 F Pulse Rate 70 69 70 Respiratory Rate 16 Blood Pressure 159/112 H 153/110 H Pulse Oximetry 95 95 95 11/12/18 20:27 11/12/18 21:00 11/12/18 22:00 Temperature Pulse Rate 69 68 71 Respiratory Rate Blood Pressure 150/105 H 144/93 H 124/85 Pulse Oximetry 95 93 L 91 L 11/12/18 23:00 11/13/18 00:00 11/13/18 04:00 Temperature 98 F 98 F Pulse Rate 76 75 69 Respiratory Rate 18 18 Blood Pressure 129/83 115/79 143/91 H Pulse Oximetry 93 L 95 95 11/13/18 07:00 11/13/18 08:00 11/13/18 10:28 Temperature 98.2 F Pulse Rate 72 Respiratory Rate 16 Blood Pressure 155/90 H Pulse Oximetry 96 96 96 Intake & Output 11/12/18 11/13/18 11/13/18 18:59 06:59 18:59 Intake Total 1000 / 1000 1470 / 1470 Output Total 950 / 950 Balance 1000 / 1000 520 / 520 Weight 75.5 kg Intake: IV 1000 / 1000 1050 / 1050 NS Inj 1,000 ML @ 100 mls/hr IV 1000 / 1000 1000 / 1000 .CONT .Q10H [facility] Rx#:[id number] Ancef 2 GM Premix Inj 2 gm In 50 / 50 50 ml @ 100 mls/hr IV.SIG Q8H [facility] Rx#:[id number] Oral 420 / 420 Output: Urine 950 / 950 Narrative: GENERAL: Patient lying in bed. Appears comfortable. SKIN: Warm and dry. HEAD: Normocephalic. EYES: No scleral icterus. No injection or drainage. NECK: Supple, trachea midline. No JVD CARDIOVASCULAR: Regular rate and rhythm without murmurs, gallops, or rubs. RESPIRATORY: Breath sounds equal bilaterally. No accessory muscle use. GASTROINTESTINAL: Abdomen soft, non-tender, nondistended. MUSCULOSKELETAL: No cyanosis, or edema. Left arm sling. BACK: Nontender without obvious deformity. No CVA tenderness. Results - Labs CBC & Chem 7: 11/12/18 07:01 11/11/18 06:56 - Imaging Impressions Chest X-Ray 11/12/18 00:00 CONCLUSION: Increasing bilateral airspace disease. Assessment and Plan - Assessment (1) Ischemic cardiomyopathy Code(s): I25.5 - Ischemic cardiomyopathy Status: Acute (2) Syncope Code(s): R55 - Syncope and collapse Status: Acute - Plan 72-year-old male with a diagnosis of hypertension, coronary artery disease, [place] as per documentation, status post coronary artery bypass graft the patient presented to our emergency department after a syncopal episode that occurred last night. Patient states he was watching the game on television when he suddenly felt shortness of breath followed by a syncopal episode that lasted a few minutes. He said he woke up on the floor and noted at the game was still on. 1. Syncope 2. Systolic CHF 3. CAD/DLD 4. HTN EKG was done which showed first-degree AV block as well as PVCs. No other significant changes. Troponins were elevated and peaked at 0.9 that showed a downtrend. Stress test done which shows large areas of infarction. Global hypokinesis. Cardiology evaluated the patient and recommendations are for the patient to under ICD placement likely today given his poor EF less than 20%. Continue to monitor on telemetry. Losartan added to the pts medications given his HTN and systolic dysfunction Continue aspirin. Plan for AICD placement today Continue aspirin, statin, beta-jade, Losartan. = 11/13. Status post AICD placement yesterday without complication. Patient wearing sling. Continue statin, beta-jade, losartan, aspirin. Follow-up with cardiology as outpatient. Discussed Condition With: Patient, Nurse, Dr. Edmond, and daughter at bedside Discharge Planning: Discharge home today (2) Syncope Qualifiers: Syncope type: unspecified Qualified Code(s): R55 - Syncope and collapse
--- NOTE | 2018-11-13 11:19 | P.DS ---
Date of admission: 11/09/18 18:44 Primary care physician: No Primary Care Physician Brief History from admission: This is a 72-year-old male with PMH of HTN and CAD who presents to the ER with complaints of syncopal event last night. States he was "watching the ball game " on the couch when he had sudden onset of SOB, followed by syncopal event which he believes lasted approx 15min, states he woke up on the floor and the game was still on. No h/o similar symptoms, no incontinence. Today w/ mild dizziness at which time he presented to the ER. On arrival, BP 168/98, HR 73, O2 sat 98% on RA, Afebrile. CBC unremarkable. INR 1.1 per GFR 88. Troponin 0 0.09. CXR with no acute findings for CT Head negative. Remains chest pain free. DS: Diagnosis - Discharge Diagnosis (1) Ischemic cardiomyopathy Status: Acute (2) Syncope Status: Acute DS: Medications - Discharge Medications Prescriptions: aspirin [Aspirin Low Dose] 81 mg PO DAILY #30 tab atorvastatin 40 mg PO HS #30 tab carvedilol [Coreg] 6.25 mg PO BID #60 tab losartan 100 mg PO DAILY #30 tab DS: Summary Hospital Course: 72-year-old male with a diagnosis of hypertension, coronary artery disease, [place] as per documentation, status post coronary artery bypass graft the patient presented to our emergency department after a syncopal episode that occurred last night. Patient states he was watching the game on television when he suddenly felt shortness of breath followed by a syncopal episode that lasted a few minutes. He said he woke up on the floor and noted at the game was still on. 1. Syncope 2. Systolic CHF 3. CAD/DLD 4. HTN EKG was done which showed first-degree AV block as well as PVCs. No other significant changes. Troponins were elevated and peaked at 0.9 that showed a downtrend. Stress test done which shows large areas of infarction. Global hypokinesis. Cardiology evaluated the patient and recommendations are for the patient to under ICD placement likely today given his poor EF less than 20%. Continue to monitor on telemetry. Losartan added to the pts medications given his HTN and systolic dysfunction Continue aspirin. Plan for AICD placement today Continue aspirin, statin, beta-jade, Losartan. = 11/13. Status post AICD placement yesterday without complication. Patient wearing sling. Continue statin, beta-jade, losartan, aspirin. Follow-up with cardiology as outpatient. Discussed Condition With: Patient, Nurse, Dr. Edmond, and daughter at bedside Discharge Planning: Discharge home today - Time Spent with Patient Total time spent providing and/or coordinating discharge services: Greater than 30 minutes - Quality: VTE Deep Vein Thrombosis/Pulmonary Embolism Present on Admission: No Exam Vital signs: Vital Signs 11/12/18 12:00 11/12/18 14:00 11/12/18 16:00 Temperature 97.9 F Pulse Rate 64 62 78 Respiratory Rate 20 Blood Pressure 131/92 H Pulse Oximetry 94 L 11/12/18 17:53 11/12/18 18:17 11/12/18 18:30 Temperature 97.6 F Pulse Rate 56 L 56 L Respiratory Rate 12 14 Blood Pressure 95/60 L 105/65 Pulse Oximetry 94 L 100 99 11/12/18 18:45 11/12/18 19:00 11/12/18 19:15 Temperature 97.7 F Pulse Rate 60 64 63 Respiratory Rate 12 13 14 Blood Pressure 118/81 153/99 H 150/95 H Pulse Oximetry 97 99 99 11/12/18 19:45 11/12/18 19:57 11/12/18 20:00 Temperature 97.9 F Pulse Rate 70 69 70 Respiratory Rate 16 Blood Pressure 159/112 H 153/110 H Pulse Oximetry 95 95 95 11/12/18 20:27 11/12/18 21:00 11/12/18 22:00 Temperature Pulse Rate 69 68 71 Respiratory Rate Blood Pressure 150/105 H 144/93 H 124/85 Pulse Oximetry 95 93 L 91 L 11/12/18 23:00 11/13/18 00:00 11/13/18 04:00 Temperature 98 F 98 F Pulse Rate 76 75 69 Respiratory Rate 18 18 Blood Pressure 129/83 115/79 143/91 H Pulse Oximetry 93 L 95 95 11/13/18 07:00 11/13/18 08:00 11/13/18 10:28 Temperature 98.2 F Pulse Rate 72 Respiratory Rate 16 Blood Pressure 155/90 H Pulse Oximetry 96 96 96 Intake & Output 11/12/18 11/13/18 11/13/18 18:59 06:59 18:59 Intake Total 1000 / 1000 1470 / 1470 Output Total 950 / 950 Balance 1000 / 1000 520 / 520 Weight 75.5 kg Intake: IV 1000 / 1000 1050 / 1050 NS Inj 1,000 ML @ 100 mls/hr IV 1000 / 1000 1000 / 1000 .CONT .Q10H [facility] Rx#:[id number] Ancef 2 GM Premix Inj 2 gm In 50 / 50 50 ml @ 100 mls/hr IV.SIG Q8H [facility] Rx#:[id number] Oral 420 / 420 Output: Urine 950 / 950 Results Procedures completed during hospitalization: AICD placement performed on 11/12. Please see report - Impressions ITS Impressions Head CT 11/09/18 17:26 CONCLUSION: Unremarkable study. . Myocardial Perfusion Scan Nuc Med 11/10/18 00:00 CONCLUSION: 1. Large areas of infarctions and global hypokinesis without any significant ischemia. Possibility of hibernating myocardium is not excluded. Chest X-Ray 11/12/18 00:00 CONCLUSION: Increasing bilateral airspace disease. Discharge Plan - Discharge Order Discharge Orders: Discharge Order (Routine); Ordered 11/13/18 Ordered By: Willie Camargo - Discharge Details Anticipated Discharge Date: 11/13/18 Discharge Comment: Discharge pending clearance by Dr Edmond - Physicians Team Primary Care Provider: [facility],No Attending Provider: Willie Camargo Other Providers: Quirino Craig MD ; [employer]
[2018-11-13 11:36] VITALS: BP 160/94; PULSE 78; TEMP 98.6; O2SAT 95
--- NOTE | 2018-11-13 15:26 | ECG ---
Date Performed: 11/13/2018 Time Performed: 05:16:36 PTAGE: 72 years EKG: Sinus rhythm with 1st degree A-V block Left axis deviation Inferior infarct - age undetermined Possible anterior infarct - age undetermined Lateral ST-T changes may be due to myocardial ischemia Since the previous tracing, no significant change noted Abnormal ECG PREVIOUS TRACING : 11/12/2018 18.32 DOCTOR: Sandy Whaley Interpretating Date/Time 11/13/2018 15:25:21
--- NOTE | 2018-11-13 15:27 | ECG ---
Date Performed: 11/12/2018 Time Performed: 18:32:40 PTAGE: 72 years EKG: SINUS BRADYCARDIA WITH FIRST DEGREE AV BLOCK POSSIBLE LEFT ATRIAL ENLARGEMENT POSSIBLE LEFT VENTRICULAR HYPERTROPHY INFERIOR MYOCARDIAL INFARCTION , OF INDETERMINATE AGE ANTEROLATERAL MYOCARDI AL INFARCTION , POSSIBLY ACUTE ACUTE CT Since the PREVIOUS TRACING , no significant change noted PREVIOUS TRACIN11/10/2018 07.21 DOCTOR: Sandy Whaley Interpretating Date/Time 11/13/2018 15:25:32
== END 2018-11-13 12:48 | disposition home or self-care (01) ==
LOC: NEPE 16:48 → NEDA 18:44 → N04 20:50 → HCIS 11-12 18:41
PROVIDERS: ADMIT Internal Medicine; ATTEND Internal Medicine